=== PATIENT | female | born 1990 | race Two or more races ===

== ENCOUNTER 2017-01-31 15:18 | Emergency (ER) | payer OTHER ==
[~2017-01-31] VITALS: Ht 157.5 cm; Wt 100.0 kg
[~2017-01-31 15:18] MED LIST: ACET50TA PO; ANUS2.5C2 PR; DOCU10ELUD PO; IBUP80TA PO; LANOOIN21 TOP; LEVO75TA3 PO; MOM30SS PO; NORA0.35 PO; PRENTAB66 PO; PRENTAB9 PO
[2017-01-31] MEDS ORDERED: birth control PO (15:28)
[2017-01-31] MEDS ORDERED: ZOLO50TA PO (15:28)
[2017-01-31] MEDS ORDERED: HYDR-3363 PO (15:28)
[2017-01-31] MEDS ORDERED: NS 1,000 ML IV ONE (18:15)
[2017-01-31] MEDS: MORPHINE 2 MG/ML 1ML SYRINGE IV PRN ×3 (18:38→20:45)
[2017-01-31 18:40] LABS: BASO % 0.4 % (0.0-1.0); EOS # 0.2 10^3/uL (0.0-0.50); EOS % 1.6 % (0.0-3.0); IMMATURE GRANULOCYTE % 0.3 % (0-0); LYMPH # 2.7 10^3/uL (1.5-6.5); LYMPH % 26.7 % (24.0-44.0); MEAN CORPUSCULAR HEMOGLOBIN 29.8 pg (27.0-33.0); MEAN CORPUSCULAR HGB CONC 33.6 g/dl (32.0-36.5); MEAN CORPUSCULAR VOLUME 88.8 fl (80.0-96.0); MONO # 0.8 10^3/uL (0.0-0.8); MONO % 7.3 % (0.0-5.0); NEUTROPHILS # 6.6 10^3/uL (1.8-7.7); NEUTROPHILS % 63.7 % (36.0-66.0); PLATELET COUNT, AUTOMATED 286 10^3/uL (150-450); RED CELL DISTRIBUTION WIDTH 12.8 % (11.5-14.5); WHITE BLOOD COUNT 10.3 10^3/uL (4.0-10.0)
[2017-01-31] MEDS ORDERED: GASTROGRAFIN SOLUTION 30ML PO ONE (18:45)
[2017-01-31 19:04] LABS: ALBUMIN 3.7 GM/DL (3.2-5.2); ALBUMIN/GLOBULIN RATIO 0.97 (1.00-1.93); ALKALINE PHOSPHATASE 89 U/L (45-117); ALT/SGPT 72 U/L (12-78); ANION GAP 6 MEQ/L (8-16); AST/SGOT 32 U/L (15-37); BILIRUBIN,DIRECT 0.2 MG/DL (0.0-0.2); BILIRUBIN,TOTAL 0.5 MG/DL (0.2-1.0); BLOOD UREA NITROGEN 13 MG/DL (7-18); CALCIUM LEVEL 9.2 MG/DL (8.5-10.1); CARBON DIOXIDE LEVEL 28 MEQ/L (21-32); CHLORIDE LEVEL 103 MEQ/L (98-107); CREATININE FOR GFR 0.68 MG/DL (0.55-1.02); GLOMERULAR FILTRATION RATE > 60.0 (>60); GLUCOSE, FASTING 86 MG/DL (70-105); POTASSIUM SERUM 4.4 MEQ/L (3.5-5.1); SODIUM LEVEL 137 MEQ/L (136-145); TOTAL PROTEIN 7.5 GM/DL (6.4-8.2)
[2017-01-31] MEDS ORDERED: GASTROGRAFIN SOLUTION 30ML (Q9963) PO ONE (19:15)
[2017-01-31] MEDS ORDERED: ISOVUE-370 76% 100ML VIAL (Q9967) As Ordered ONE (21:10)
[2017-01-31 21:44] VITALS: BP 118/63
--- NOTE | 2017-01-31 21:50 | REPUSA ---
CT of the abdomen and pelvis with contrast Clinical statement: Pain. Technique: Multiple axial CT images were obtained from the base of the lungs through the floor of the pelvis utilizing 5 mm axial slices after administration of oral and nonionic intravenous contrast. C oronal and sagittal reconstructions were also obtained. Comparison: 01/21/2016. Findings: Chest: The visualized lung bases are clear. Abdomen: The liver, spleen, pancreas, kidneys, and adrenal glands are unremarkable. The aorta is with in normal limits. There is no evidence of abdominal lymphadenopathy or ascites. Pelvis: The bowel is unremarkable, with no obstructive or inflammatory changes. The appendix is flower l. The urinary bladder is within normal limits. The other pelvic structures appear grossly intact. Th ere is no evidence of pelvic lymphadenopathy or ascites. Bones: There are no suspicious osseous abnormalities seen. Impression: Unremarkable CT examination of the abdomen and pelvis.
[2017-01-31] MEDS ORDERED: PERC5TAB12 PO (22:06)
== END 2017-01-31 22:18 | disposition home or self-care (01) ==
LOC: M ED 15:18
DX: K62.89 Other specified diseases of anus and rectum (principal); E03.9 Hypothyroidism, unspecified; F41.9 Anxiety disorder, unspecified; F32.9 Major depressive disorder, single episode, unspecified; D69.3 Immune thrombocytopenic purpura; Z79.899 Other long term (current) drug therapy; Z79.3 Long term (current) use of hormonal contraceptives; Z88.8 Allergy status to other drugs, medicaments and biological substances
CPT/HCPCS: 74177; 80048; 80076; 81001; 81025; 83690; 85025; 96361; 96374; 99283; Q9963; Q9967

== ENCOUNTER 2017-02-01 14:32 | Emergency (ER) | payer OTHER ==
[~2017-02-01] VITALS: Ht 157.5 cm; Wt 104.8 kg
[~2017-02-01 14:32] MED LIST changes: +HYDR-3363 PO; +PERC5TAB12 PO; +ZOLO50TA PO; +birth control PO
[2017-02-01 16:31] LABS: BASO % 0.4 % (0.0-1.0); EOS # 0.1 10^3/uL (0.0-0.50); EOS % 1.5 % (0.0-3.0); IMMATURE GRANULOCYTE % 0.4 % (0-0); LYMPH # 2.3 10^3/uL (1.5-6.5); LYMPH % 28.2 % (24.0-44.0); MEAN CORPUSCULAR HEMOGLOBIN 29.4 pg (27.0-33.0); MEAN CORPUSCULAR HGB CONC 32.8 g/dl (32.0-36.5); MEAN CORPUSCULAR VOLUME 89.7 fl (80.0-96.0); MONO # 0.6 10^3/uL (0.0-0.8); NEUTROPHILS # 4.9 10^3/uL (1.8-7.7); NEUTROPHILS % 61.5 % (36.0-66.0); PLATELET COUNT, AUTOMATED 275 10^3/uL (150-450); RED CELL DISTRIBUTION WIDTH 12.9 % (11.5-14.5)
[2017-02-01 16:54] LABS: ANION GAP 5 MEQ/L (8-16); BLOOD UREA NITROGEN 18 MG/DL (7-18); CALCIUM LEVEL 9.1 MG/DL (8.5-10.1); CARBON DIOXIDE LEVEL 29 MEQ/L (21-32); CHLORIDE LEVEL 104 MEQ/L (98-107); CONTROL LINE HCG INT CTR LINE PRESENT; CREATININE FOR GFR 0.75 MG/DL (0.55-1.02); GLOMERULAR FILTRATION RATE > 60.0 (>60); GLUCOSE, FASTING 93 MG/DL (70-105); SODIUM LEVEL 138 MEQ/L (136-145)
--- NOTE | 2017-02-01 17:47 | REP ---
Supine abdomen two views: Comparison is 01/18/2016. There is opaque material throughout the colon, likely residual from the CT performed yesterday. The bowel gas pattern is normal. The bladder is opacified, likely from the CT performed yesterday. There are no calcifications. Skeletal structures and soft tissues are otherwise unremarkable. There are surgical clips in the abdominal right upper quadrant. Impression: Normal bowel gas pattern. Signed by Josiah Kumar MD 02/01/2017 05:38 P
[2017-02-01 19:40] VITALS: BP 112/65
== END 2017-02-01 19:33 | disposition home or self-care (01) ==
LOC: M ED 14:32
DX: R33.9 Retention of urine, unspecified (principal); F41.9 Anxiety disorder, unspecified; F32.9 Major depressive disorder, single episode, unspecified; E03.9 Hypothyroidism, unspecified; Z79.3 Long term (current) use of hormonal contraceptives; Z79.899 Other long term (current) drug therapy; Z88.8 Allergy status to other drugs, medicaments and biological substances

== ENCOUNTER 2017-02-05 18:23 | Emergency (ER) | payer OTHER ==
[~2017-02-05] VITALS: Ht 160 cm; Wt 327.0 kg
[2017-02-05] MEDS ORDERED: KETOROLAC 30 MG/ML VIAL (J1885) IV ONE (20:30)
[2017-02-05] MEDS ORDERED: NS 1,000 ML IV ONE (20:30)
[2017-02-05] MEDS: ONDANSETRON 4MG/2ML VIAL (J2405) IV PRN (21:02)
[2017-02-05 21:03] LABS: BASO # 0.1 10^3/uL (0.0-0.2); BASO % 0.3 % (0.0-1.0); EOS # 0.1 10^3/uL (0.0-0.50); EOS % 0.4 % (0.0-3.0); IMMATURE GRANULOCYTE % 0.3 % (0-0); LYMPH # 2.2 10^3/uL (1.5-6.5); LYMPH % 14.1 % (24.0-44.0); MEAN CORPUSCULAR HEMOGLOBIN 29.7 pg (27.0-33.0); MEAN CORPUSCULAR HGB CONC 33.4 g/dl (32.0-36.5); MEAN CORPUSCULAR VOLUME 88.9 fl (80.0-96.0); MONO # 0.7 10^3/uL (0.0-0.8); MONO % 4.6 % (0.0-5.0); NEUTROPHILS # 12.3 10^3/uL (1.8-7.7); NEUTROPHILS % 80.3 % (36.0-66.0); PLATELET COUNT, AUTOMATED 313 10^3/uL (150-450); RED CELL DISTRIBUTION WIDTH 12.9 % (11.5-14.5); WHITE BLOOD COUNT 15.4 10^3/uL (4.0-10.0)
[2017-02-05 21:04] LABS: METHADONE URINE NEGATIVE (NEGATIVE)
[2017-02-05 21:15] LABS: CONTROL LINE HCG INT CTR LINE PRESENT
[2017-02-05 21:25] LABS: ALBUMIN 4.2 GM/DL (3.2-5.2); ALBUMIN/GLOBULIN RATIO 1.02 (1.00-1.93); ALKALINE PHOSPHATASE 115 U/L (45-117); ALT/SGPT 97 U/L (12-78); ANION GAP 7 MEQ/L (8-16); AST/SGOT 43 U/L (15-37); BILIRUBIN,DIRECT 0.2 MG/DL (0.0-0.2); BILIRUBIN,TOTAL 0.5 MG/DL (0.2-1.0); BLOOD UREA NITROGEN 13 MG/DL (7-18); CALCIUM LEVEL 9.5 MG/DL (8.5-10.1); CARBON DIOXIDE LEVEL 27 MEQ/L (21-32); CHLORIDE LEVEL 102 MEQ/L (98-107); CREATININE FOR GFR 0.82 MG/DL (0.55-1.02); GLOMERULAR FILTRATION RATE > 60.0 (>60); GLUCOSE, FASTING 93 MG/DL (70-105); POTASSIUM SERUM 4.1 MEQ/L (3.5-5.1); SODIUM LEVEL 136 MEQ/L (136-145); TOTAL PROTEIN 8.3 GM/DL (6.4-8.2)
--- NOTE | 2017-02-05 21:50 | REPUSA ---
Clinical history: Pain. Findings: Real-time transabdominal and transvaginal ultrasound images of the pelvis were obtained. An anteverted uterus is noted, measuring 4.1 x 4.8 x 3.8 cm. The uterus demonstrates normal echotexture and echogenicity. The endometrial stripe measures 4 mm and is within normal limits. The right ovary measures 3.5 x 2.5 x 2.1 cm. The left ovary measures 3.3 x 1.9 x 2.0 cm. No adnexal masses are seen. Color Doppler flow is seen within both ovaries. There is no evidence of free fluid. Impression: Unremarkable ultrasound examination of the pelvis.
[2017-02-05] MEDS ORDERED: MORPHINE 4 MG/ML 1ML SYRINGE IV ONE (22:00)
[2017-02-05] MEDS ORDERED: ISOVUE-370 76% 100ML VIAL (Q9967) As Ordered ONE (22:05)
--- NOTE | 2017-02-05 22:50 | REPUSA ---
CT of the abdomen and pelvis with contrast Clinical statement: Pain. Technique: Multiple axial CT images were obtained from the base of the lungs through the floor of the pelvis utilizing 5 mm axial slices after administration of comparison: 01/31/2017 onic intravenous c ontrast. Coronal and sagittal reconstructions were also obtained. Comparison: 01/31/2017. Findings: Chest: The visualized lung bases are clear. Abdomen: The liver, spleen, pancreas, kidneys, and adrenal glands are unremarkable. The aorta is with in normal limits. There is no evidence of abdominal lymphadenopathy or ascites. Pelvis: The bowel is unremarkable, with no obstructive or inflammatory changes. The appendix is flower l. The urinary bladder is within normal limits. The other pelvic structures appear grossly intact. Th ere is no evidence of pelvic lymphadenopathy or ascites. Bones: There are no suspicious osseous abnormalities seen. Impression: Unremarkable CT examination of the abdomen and pelvis.
[2017-02-05 23:13] VITALS: BP 100/52
[2017-02-05] MEDS ORDERED: ZOFR4TAB3 PO (23:21)
== END 2017-02-05 23:39 | disposition home or self-care (01) ==
LOC: M ED 18:23
DX: R10.31 Right lower quadrant pain (principal); R10.32 Left lower quadrant pain; R11.0 Nausea; Z79.899 Other long term (current) drug therapy; Z79.3 Long term (current) use of hormonal contraceptives; Z88.8 Allergy status to other drugs, medicaments and biological substances
CPT/HCPCS: 36415; 74177; 76830; 76856; 80048; 80076; 80307; 81001; 84703; 85025; 87086; 93976; 96374; 96375; 99283; J1885; J2405; Q9967

== ENCOUNTER 2018-01-20 21:41 | Emergency (ER) | payer SELFPAY, OTHER ==
[2018-01-20] MEDS: KETOROLAC 60 MG/2 ML VIAL (J1885) IM (22:15)
[2018-01-20 22:25] LABS: BASO # 0.1 10^3/uL (0.0-0.2); BASO % 0.6 % (0.0-1.0); EOS # 0.1 10^3/uL (0.0-0.50); EOS % 1.1 % (0.0-3.0); HEMATOCRIT 41.6 % (36.0-47.0); HEMOGLOBIN 13.6 g/dl (12.0-15.5); IMMATURE GRANULOCYTE % 0.3 % (0-3.0); LYMPH # 2.9 10^3/uL (1.5-6.5); LYMPH % 27.5 % (24.0-44.0); MEAN CORPUSCULAR HEMOGLOBIN 29.5 pg (27.0-33.0); MEAN CORPUSCULAR HGB CONC 32.7 g/dl (32.0-36.5); MEAN CORPUSCULAR VOLUME 90.2 fl (80.0-96.0); MONO # 0.7 10^3/uL (0.0-0.8); MONO % 6.6 % (0.0-5.0); NEUTROPHILS # 6.8 10^3/uL (1.8-7.7); NEUTROPHILS % 63.9 % (36.0-66.0); PLATELET COUNT, AUTOMATED 317 10^3/uL (150-450); RED BLOOD COUNT 4.61 10^6/uL (4.00-5.40); RED CELL DISTRIBUTION WIDTH 12.9 % (11.5-14.5); WHITE BLOOD COUNT 10.6 10^3/uL (4.0-10.0)
[2018-01-20 22:47] LABS: CONTROL LINE HCG INT CTR LINE PRESENT; HCG, SERUM QUALITATIVE NEGATIVE (NEGATIVE)
== END 2018-01-21 00:28 | disposition home or self-care (01) ==
LOC: M ED 01-21 00:28
DX: N92.0 Excessive and frequent menstruation with regular cycle (principal); N93.8 Other specified abnormal uterine and vaginal bleeding; R10.2 Pelvic and perineal pain; Z79.899 Other long term (current) drug therapy; Z88.8 Allergy status to other drugs, medicaments and biological substances
CPT/HCPCS: J1885

== ENCOUNTER → 2018-03-28 | Outpatient (REF) | payer OTHER, MEDICAID | LOC: M LAB REF 17:26 | DX: Z12.4 Encounter for screening for malignant neoplasm of cervix (principal) | CPT/HCPCS: 88142 ==

== ENCOUNTER → 2018-08-24 | Outpatient (CLI) | payer MEDICAID ==
[~2018-08-24] MED LIST changes: -ACET50TA PO; -DOCU10ELUD PO; +DOCU5LIQ PO; +MAPA500T17 PO; +ZOFR4TAB14 PO
== END ==
LOC: M OUTALCOH 07:55
PROVIDERS: ATTEND Psychiatry & Neurology Psychiatry
DX: F10.20 Alcohol dependence, uncomplicated (principal)

== ENCOUNTER → 2018-09-07 | Outpatient (REF) | payer OTHER ==
[2018-09-07 11:26] LABS: BASO % 0.6 % (0.0-1.0); EOS # 0.1 10^3/uL (0.0-0.50); EOS % 1.7 % (0.0-3.0); HEMATOCRIT 41.9 % (36.0-47.0); HEMOGLOBIN 13.9 g/dl (12.0-15.5); LYMPH % 28.1 % (24.0-44.0); MEAN CORPUSCULAR HEMOGLOBIN 30.8 pg (27.0-33.0); MEAN CORPUSCULAR HGB CONC 33.2 g/dl (32.0-36.5); MEAN CORPUSCULAR VOLUME 92.9 fl (80.0-96.0); MONO # 0.5 10^3/uL (0.0-0.8); MONO % 6.6 % (0.0-5.0); NEUTROPHILS # 4.5 10^3/uL (1.8-7.7); NEUTROPHILS % 62.6 % (36.0-66.0); PLATELET COUNT, AUTOMATED 312 10^3/uL (150-450); RED BLOOD COUNT 4.51 10^6/uL (4.00-5.40); WHITE BLOOD COUNT 7.3 10^3/uL (4.0-10.0)
[2018-09-07 12:06] LABS: BLOOD UREA NITROGEN 17 MG/DL (7-18); CALCIUM LEVEL 8.9 MG/DL (8.5-10.1); CARBON DIOXIDE LEVEL 28 MEQ/L (21-32); CHLORIDE LEVEL 106 MEQ/L (98-107); GLOMERULAR FILTRATION RATE > 60.0 (>60); GLUCOSE, FASTING 106 MG/DL (70-100); POTASSIUM SERUM 4.5 MEQ/L (3.5-5.1); SODIUM LEVEL 139 MEQ/L (136-145)
== END ==
LOC: M SFHCLERA 09:46
PROVIDERS: ATTEND Nurse Practitioner Family
DX: Z00.00 Encounter for general adult medical examination without abnormal findings (principal); E03.9 Hypothyroidism, unspecified

== ENCOUNTER 2018-09-20 10:00 | Outpatient (RCR) | payer MEDICAID | END 2018-09-21 | LOC: M OUTALCOH 10:00 | PROVIDERS: ATTEND Psychiatry & Neurology Psychiatry | DX: F10.10 Alcohol abuse, uncomplicated (principal) ==

== ENCOUNTER 2018-10-18 09:00 | Outpatient (RCR) | payer MEDICAID | END 2018-10-21 | LOC: M OUTALCOH 09:00 | PROVIDERS: ATTEND Psychiatry & Neurology Psychiatry | DX: F10.20 Alcohol dependence, uncomplicated (principal) ==

== ENCOUNTER 2018-11-19 15:00 | Outpatient (RCR) | payer MEDICAID | END 2018-11-21 | LOC: M OUTALCOH 15:00 | PROVIDERS: ATTEND Psychiatry & Neurology Psychiatry | DX: F10.20 Alcohol dependence, uncomplicated (principal) ==

== ENCOUNTER 2018-12-07 11:00 | Outpatient (RCR) | payer MEDICAID | END 2018-12-22 | LOC: M OUTALCOH 11:00 | PROVIDERS: ATTEND Psychiatry & Neurology Psychiatry | DX: F10.20 Alcohol dependence, uncomplicated (principal) ==

== ENCOUNTER → 2018-12-07 | Outpatient (CLI) | payer MEDICAID | LOC: M LRY 12:34 | PROVIDERS: ATTEND Psychiatry & Neurology Psychiatry | DX: F10.20 Alcohol dependence, uncomplicated (principal) ==

== ENCOUNTER → 2019-01-07 | Outpatient (REF) | payer OTHER ==
[2019-01-07 20:31] LABS: FREE T4 1.74 NG/DL (0.76-1.46); THYROID STIMULATING HORMONE 0.012 uIU/ML (0.358-3.740)
== END ==
LOC: M SFHCLERA 15:28
PROVIDERS: ATTEND Nurse Practitioner Family
DX: E03.9 Hypothyroidism, unspecified (principal)

== ENCOUNTER 2019-01-09 08:00 | Outpatient (RCR) | payer MEDICAID | END 2019-01-21 | LOC: M OUTALCOH 08:00 | PROVIDERS: ATTEND Psychiatry & Neurology Psychiatry | DX: F10.20 Alcohol dependence, uncomplicated (principal) ==

== ENCOUNTER 2019-01-25 14:16 | Outpatient (RCR) | payer MEDICAID | END 2019-02-21 | LOC: M OUTALCOH 14:16 | PROVIDERS: ATTEND Psychiatry & Neurology Psychiatry | DX: F10.20 Alcohol dependence, uncomplicated (principal) ==

== ENCOUNTER → 2019-04-02 | Outpatient (REF) | payer OTHER ==
[2019-04-03 14:11] LABS: CHLAMYDIA DNA AMPLIFICATION NEGATIVE (NEGATIVE); GC DNA AMPLIFICATION NEGATIVE (NEGATIVE)
== END ==
LOC: M SFHCLERA 19:51
PROVIDERS: ATTEND Nurse Practitioner Family
DX: R35.0 Frequency of micturition (principal); N89.8 Other specified noninflammatory disorders of vagina

== ENCOUNTER → 2019-04-04 | Outpatient (REF) | payer OTHER ==
[2019-04-04 17:28] LABS: FREE T4 1.01 NG/DL (0.76-1.46); THYROID STIMULATING HORMONE 3.95 uIU/ML (0.358-3.740)
== END ==
LOC: M SFHCLERA 12:21
PROVIDERS: ATTEND Nurse Practitioner Family
DX: E03.9 Hypothyroidism, unspecified (principal)

== ENCOUNTER → 2019-05-03 | Outpatient (REF) | payer OTHER ==
[2019-05-03 21:37] LABS: CHLAMYDIA DNA AMPLIFICATION NEGATIVE (NEGATIVE); GC DNA AMPLIFICATION NEGATIVE (NEGATIVE)
== END ==
LOC: M SFHCLERA 15:08
PROVIDERS: ATTEND Nurse Practitioner Family
DX: R10.2 Pelvic and perineal pain (principal)

== ENCOUNTER → 2019-11-07 | Outpatient (CLI) | payer OTHER ==
--- NOTE | 2019-11-07 11:44 | REP ---
REASON: Elevated LFTs. COMPARISON: 10/15/2018, which is was normal for a status post cholecystectomy patient. Today's exam shows some evidence of mild diffuse increased echoes throughout the liver on the images provided. There are no gross masses or ductal dilatation. The common bile duct measures between 3 and 4 mm. The imaged portion of the pancreas and right kidney are within normal limits. IMPRESSION: Possible fatty infiltration suggested in the images provided. If liver function is of clinical concern, consider followup with sulfur colloid liver scintigraphy. Electronically Signed by Adonis Pérez DO 11/07/2019 12:29 P
== END ==
LOC: M LRY 08:37
PROVIDERS: ATTEND Family Medicine
DX: R74.8 Abnormal levels of other serum enzymes (principal)

== ENCOUNTER 2020-03-27 23:45 | Emergency (ER) | payer OTHER ==
[~2020-03-27] VITALS: Ht 157.5 cm; Wt 114.8 kg
[2020-03-27] MEDS ORDERED: METF-838 PO (23:58)
[2020-03-27] MEDS ORDERED: CITA40TA4 (23:58)
[2020-03-28 01:12] LABS: BASO # 0.1 10^3/uL (0.0-0.2); BASO % 0.5 % (0.0-1.0); EOS # 0.3 10^3/uL (0.0-0.5); EOS % 2.2 % (0.0-3.0); HEMATOCRIT 42.1 % (36.0-47.0); HEMOGLOBIN 13.3 g/dl (12.0-15.5); LYMPH # 3.7 10^3/uL (1.5-5.0); LYMPH % 32.2 % (24.0-44.0); MEAN CORPUSCULAR HEMOGLOBIN 28.8 pg (27.0-33.0); MEAN CORPUSCULAR HGB CONC 31.6 g/dl (32.0-36.5); MEAN CORPUSCULAR VOLUME 91.1 fl (80.0-96.0); MONO # 0.7 10^3/uL (0.0-0.8); NEUTROPHILS # 6.7 10^3/uL (1.5-8.5); NEUTROPHILS % 58.8 % (36.0-66.0); PLATELET COUNT, AUTOMATED 302 10^3/uL (150-450); RED BLOOD COUNT 4.62 10^6/uL (4.00-5.40); WHITE BLOOD COUNT 11.4 10^3/uL (4.0-10.0)
[2020-03-28] MEDS ORDERED: KETOROLAC 30 MG/ML 1ML VIAL IV ONE (01:30)
[2020-03-28 01:39] LABS: BLOOD UREA NITROGEN 17 MG/DL (7-18); CARBON DIOXIDE LEVEL 27 MEQ/L (21-32); CHLORIDE LEVEL 106 MEQ/L (98-107); CREATININE FOR GFR 0.89 MG/DL (0.55-1.30); GLOMERULAR FILTRATION RATE > 60.0 (>60); GLUCOSE, FASTING 89 MG/DL (70-100); POTASSIUM SERUM 3.8 MEQ/L (3.5-5.1); SODIUM LEVEL 140 MEQ/L (136-145)
[2020-03-28 01:40] LABS: ALBUMIN 3.8 GM/DL (3.2-5.2); ALT/SGPT 77 U/L (12-78); BILIRUBIN,DIRECT < 0.1 MG/DL (0.0-0.2); BILIRUBIN,TOTAL 0.2 MG/DL (0.2-1.0); LIPASE 166 U/L (73-393); TOTAL PROTEIN 7.4 GM/DL (6.4-8.2)
[2020-03-28 01:44] LABS: HCG, SERUM QUALITATIVE NEGATIVE (NEGATIVE)
--- NOTE | 2020-03-28 02:49 | REPVR ---
PROCEDURE INFORMATION: Exam: US Pelvis Complete, Transabdominal and US Duplex Artery and Vein, Ovaries, Complete Exam date and time: 03/28/2020 2:06 AM Age: 30 years old Clinical indication: Pelvic pain; Additional info: Rlq pain near ovary, radiates to vaginal area. Last menstrual period: 03/12/2020. TECHNIQUE: Imaging protocol: Real-time transabdominal pelvic ultrasound with image documentation. Real-time duplex ultrasound scan of the arterial and venous flow of the ovaries with B-mode, color Doppler flow and spectral waveform analysis. Complete Pelvis, Complete Duplex. COMPARISON: US PELVIC NON-OB COMPLETE 01/20/2018 10:42 PM FINDINGS: Uterus/cervix: The anteverted uterus is normal in appearance. No myometrial mass is noted. The endometrium is normal in appearance and measures 5 mm in thickness. Right adnexa: The right ovary is normal in appearance. No right ovarian cyst or right adnexal mass is noted. The right ovary measures 4.2 cm x 2.3 cm x 3.3 cm and the right ovarian volume measures 16.1 mL. The arterial and venous color Doppler flow and spectral waveforms within the right ovary are within normal limits, without evidence for right ovarian torsion. Left adnexa: The left ovary is normal in appearance. No left ovarian cyst or left adnexal mass is noted. The arterial and venous color Doppler flow and spectral waveforms within the left ovary are within normal limits, without evidence for left ovarian torsion. The left ovary measures 2.9 cm x 2.6 cm x 2.5 cm and the left ovarian volume measures 9.5 mL. Free fluid: No free fluid is seen from the images obtained. Bladder: The distended urinary bladder is normal in appearance. IMPRESSION: Normal ultrasound of the uterus and ovaries. No ovarian torsion. Electronically signed by: Brice Garcia On 03/28/2020 02:49:57 AM
[2020-03-28] MEDS ORDERED: ISOVUE-370 76% 100ML VIAL As Ordered ONE (03:52)
--- NOTE | 2020-03-28 04:29 | REPVR ---
PROCEDURE INFORMATION: Exam: CT Abdomen And Pelvis With Contrast Exam date and time: 03/28/2020 3:59 AM Age: 30 years old Clinical indication: Abdominal pain; Localized; Right lower quadrant (rlq); Additional info: Rlq abd pain TECHNIQUE: Imaging protocol: Computed tomography of the abdomen and pelvis with intravenous contrast. Radiation optimization: All CT scans at this facility use at least one of these dose optimization techniques: automated exposure control; mA and/or kV adjustment per patient size (includes targeted exams where dose is matched to clinical indication); or iterative reconstruction. Contrast material: ISOVUE 370; Contrast volume: 100 ml; Contrast route: INTRAVENOUS (IV); COMPARISON: CT ABD/PEL W/IV CONTRAST ONLY 02/05/2017 10:20 PM FINDINGS: Liver: Normal. No mass. Gallbladder and bile ducts: The patient is status post cholecystectomy. There is no biliary ductal dilatation. Pancreas: Normal. No ductal dilation. Spleen: Normal. No splenomegaly. Adrenal glands: Normal. No mass. Kidneys and ureters: Normal. No hydronephrosis. Stomach and bowel: Unremarkable. No obstruction. No mucosal thickening. Appendix: No evidence of appendicitis. Intraperitoneal space: There is subtle mesenteric haziness. Vasculature: Unremarkable. No abdominal aortic aneurysm. Lymph nodes: There is shotty small bowel mesenteric lymph nodes. Urinary bladder: Unremarkable as visualized. Reproductive: Unremarkable as visualized. Bones/joints: Unremarkable. No acute fracture. Soft tissues: Unremarkable. IMPRESSION: 1. Nonspecific mesenteric changes with some shotty lymph nodes which can be seen with inflammatory/infectious process such as enteritis. Correlate clinically. 2. No CT evidence of appendicitis. Electronically signed by: Jacinto Urena On 03/28/2020 04:29:49 AM
[2020-03-28] MEDS ORDERED: ONDA4TAB6 PO (05:30)
[2020-03-28 05:49] VITALS: BP 113/79
== END 2020-03-28 05:51 | disposition home or self-care (01) ==
LOC: M ED 23:45
DX: K52.9 Noninfective gastroenteritis and colitis, unspecified (principal); Z79.84 Long term (current) use of oral hypoglycemic drugs; Z79.899 Other long term (current) drug therapy; Z88.8 Allergy status to other drugs, medicaments and biological substances
CPT/HCPCS: 74177; 76856; 80048; 80076; 81001; 83690; 84703; 85025; 93041; 93976; 96374; 99284; J1885; Q9967

== ENCOUNTER 2020-06-03 20:59 | Emergency (ER) | payer OTHER ==
[~2020-06-03] VITALS: Ht 157.5 cm; Wt 113.7 kg
[~2020-06-03 20:59] MED LIST changes: +CITA40TA4; +METF-838 PO; +ONDA4TAB6 PO
--- OUTSIDE RECORDS SUMMARY | 2020-06-03 21:11 | CCD ---
Author Author [facility] Organization [facility] Address Unknown Phone Unavailable Care Team Providers Care Cant Gang Sawyer Name Role Phone Luzma Iraheta Unavailable PROBLEMS Type Condition ICD9-CM Code [id number] Code Onset Dates Condition S tatus SNOMED Code Notes Problem Vaginal bleeding N93.9 Active 327212319 Problem Hx MRSA infection Z86.14 Active 225081776 Problem Acquired hypothyroidism E03.9 Active 14335918 2 Problem Fatty liver K76.0 Active 245601242 Problem Irregular menses N92.6 Active 30231829 Problem Seasonal allergies J30.2 Active 204114058 Problem Dysthymia F34.1 Active 71180331 Problem Missed menses N92.6 Active 56481052 Problem History of ITP Z86.2 Active 354518282 ALLERGIES Allergen (clinical drug ingredient) Drug/Non Drug Allergy do cumented on EMR Reaction Allergy Type Onset Date Status albuterol Albuterol unsure; childhood reaction Drug Allergy Active ENCOUNTERS from 1990 to 2020-04-01 Encounter Location Date Provider Diagnosis [facility] [address] [place] [address] Mar, Luzma Iraheta Viral enteritis A08.4 IMMUNIZATIONS No Information SOCIAL HISTORY Tobacco Use: Social History Observation Description Date Details (start date - stop date) Never Smoker Sex Assigned At : Social History Observation Description Sex Assigned At Unknown Education: Question Answer Notes Level of Education: High School Audit Question Answer Notes Total Score: 0 Interpretation: Alcohol Education Language: Question Answer Notes Languages spoken: Sinhala Sabianism: Question Answer Notes Sabianism 33 None Sexual Hx: Question Answer Notes Had sex in the last 12 months (vaginal, oral, or anal)? Yes LMP: 09/01/2018 Have you ever had an STD? No with Men only Use protection? Yes How often? Some of the time Drug and Alcohol Question Answer Notes Total Score: 0 Interpretation: No problems reported Alcohol Screening: Question Answer Notes Did you have a drink containing alcohol in the past year? Ye s Points 1 Interpretation Negative How many drinks did you have on a typica l day when you were drinking in the past year? 1 or 2 (0 points) How often did you have a drink containing alcohol in t he past year? Monthly or less (1 point) BMI Care Goal Follow-Up Question Answer Notes Above Normal BMI Follow-Up Dietary management educatio n, guidance, and counseling Tobacco Use: Question Answer Notes Are you a: never smoker REASON FOR REFERRAL No Information VITAL SIGNS Weight 251.4 lbs Mar, Height 62 in Mar, BMI 45.98 kg/m2 Mar, Heart Rate 98 /min Mar, Respiratory Rate 17 /min Mar, Temperature 97.3 degrees Fahrenheit Mar, Oximetry 98 Mar, Blood pressure systolic 134 mm Hg Mar, Blood pressure diastolic 80 mm Hg Mar, MEDICATIONS Medication SIG (Take, Route, Frequency, Duration) Notes Start Da te End Date Status Citalopram Hydrobromide 40 MG 1 tablet Orally Once a day for 90 days Dec, Active Citalopram Hydrobromide 40 MG 1 tablet Orally Once a day for 30 day(s) Dec, Not-Taking Metformin HCl 500 MG 1 tablet with a meal Orally bid for 30 day( s) Jan, Active Diflucan 150 MG 1 tablet Orally Daily for 1 days 12 Mar, 2 019 Not-Taking Levothyroxine Sodium 75 MCG 1 tablet on an empty stoma ch in the morning Orally Once a day Dec, Active PROCEDURES No Information RESULTS No Results REASON FOR VISIT [facility] 03/27/2020 MEDICAL (GENERAL) HISTORY Type Description Date Medical History Hypothyroid Medical History Dysthymia Medical History alcohol use Medical History History of ITP Surgical History T & A 6 years old Surgical History Gallbladder 06/2011 Goals Section No Information Health Concerns No Information MEDICAL EQUIPMENT No Information MENTAL STATUS No Information FUNCTIONAL STATUS No Information ASSESSMENTS Encounter Date Diagnosis Assessment Notes Treatment Notes Treatm ent Clinical Notes Mar, Viral enteritis (ICD-10 - A08.4) Appears to be resolving, continue bland diet. Referral to GI for further evaluation. PLAN OF TREATMENT Treatment Notes Assessment Notes Clinical Notes Viral enteritis Appears to be resolv ing, continue bland diet. Referral to GI for further evaluation. Next Appt Details prn Reason: Insurance Providers Payer Name Payer Address Payer Phone Insured Name Patient Relati onship to Insured Coverage Start Date Coverage End Date [facility] [address] [facility] [phone] BEN BUCHANAN self
--- OUTSIDE RECORDS SUMMARY | 2020-06-03 21:11 | CCD ---
Author Author [facility] Organization [facility] Address Unknown Phone Unavailable Care Team Providers Care Toilet Attendant Name Role Phone Luzma Iraheta Unavailable PROBLEMS Type Condition ICD9-CM Code [id number] Code Onset Dates Condition S tatus SNOMED Code Notes Problem Vaginal bleeding N93.9 Active 970410618 Problem Hx MRSA infection Z86.14 Active 616914556 Problem Acquired hypothyroidism E03.9 Active 46044754 2 Problem Fatty liver K76.0 Active 718285464 Problem Irregular menses N92.6 Active 51123251 Problem Seasonal allergies J30.2 Active 679452181 Problem Dysthymia F34.1 Active 10789289 Problem Missed menses N92.6 Active 45236945 Problem History of ITP Z86.2 Active 989090276 ALLERGIES Allergen (clinical drug ingredient) Drug/Non Drug Allergy do cumented on EMR Reaction Allergy Type Onset Date Status albuterol Albuterol unsure; childhood reaction Drug Allergy Active ENCOUNTERS from 1990 to 2020-03-31 Encounter Location Date Provider Diagnosis [address] [address] Mar, Luzma Iraheta IMMUNIZATIONS No Information SOCIAL HISTORY Tobacco Use: Social History Observation Description Date Details (start date - stop date) Never Smoker Sex Assigned At : Social History Observation Description Sex Assigned At Unknown Education: Question Answer Notes Level of Education: High School Audit Question Answer Notes Total Score: 0 Interpretation: Alcohol Education Language: Question Answer Notes Languages spoken: Sinhala Mu-Ism: Question Answer Notes Mu-Ism 33 None Sexual Hx: Question Answer Notes [...] REASON FOR REFERRAL No Information VITAL SIGNS No information MEDICATIONS Medication SIG (Take, Route, Frequency, Duration) [...] 1 tablet Orally Daily for 1 days Mar, 019 Not-Taking Levothyroxine Sodium 75 MCG 1 tablet on an empty stoma ch in the morning Orally Once a day Dec, Active PROCEDURES No Information RESULTS No Results REASON FOR VISIT ER Visit [facility] 03/28; abd pain MEDICAL (GENERAL) HISTORY Type Description Date Medical History Hypothyroid Medical History Dysthymia Medical History alcohol use Medical History History of ITP Surgical History T & A 6 years old Surgical History Gallbladder 06/2011 Goals Section No Information Health Concerns No Information MEDICAL EQUIPMENT No Information MENTAL STATUS No Information FUNCTIONAL STATUS No Information ASSESSMENTS No Information PLAN OF TREATMENT No Information Insurance Providers Payer Name Payer Address Payer Phone Insured Name Patient Relati onship to Insured Coverage Start Date Coverage End Date [facility] [address] [facility] [phone] BEN BUCHANAN self
--- OUTSIDE RECORDS SUMMARY | 2020-06-03 21:11 | CCD ---
Author Author [facility] Organization [facility] Address Unknown Phone Unavailable Care Team Providers Care Fermentologist Name Role Phone Luzma Iraheta Unavailable PROBLEMS Type Condition ICD9-CM Code [id number] Code Onset Dates Condition S tatus SNOMED Code Notes Problem Vaginal bleeding N93.9 Active 477945526 Problem Hx MRSA infection Z86.14 Active 331729156 Problem Acquired hypothyroidism E03.9 Active 55925247 2 Problem Fatty liver K76.0 Active 143350293 Problem Irregular menses N92.6 Active 05657206 Problem Seasonal allergies J30.2 Active 289594402 Problem Dysthymia F34.1 Active 87283464 Problem Missed menses N92.6 Active 23060964 Problem History of ITP Z86.2 Active 466995314 ALLERGIES Allergen (clinical drug ingredient) Drug/Non Drug Allergy do cumented on EMR Reaction Allergy Type Onset Date Status albuterol Albuterol unsure; childhood reaction Drug Allergy Active ENCOUNTERS from 1990 to 2020-05-23 Encounter Location Date Provider Diagnosis [facility] [address] [place] [address] Apr, Luzma Iraheta IMMUNIZATIONS No Information SOCIAL HISTORY Tobacco Use: Social History Observation Description Date Details (start date - stop date) Never Smoker Sex Assigned At : Social History Observation Description Sex Assigned At Unknown Education: Question Answer Notes Level of Education: High School Audit Question Answer Notes Total Score: 0 Interpretation: Alcohol Education Language: Question Answer Notes Languages spoken: Venezuelan Restoration: Question Answer Notes Restoration 33 None Sexual Hx: Question Answer Notes [...] Information RESULTS No Results REASON FOR VISIT Call Back MEDICAL (GENERAL) HISTORY Type Description Date Medical [...] Insured Coverage Start Date Coverage End Date [facility] [address] [facility] [phone] BEN BUCHANAN self
--- OUTSIDE RECORDS SUMMARY | 2020-06-03 21:12 | CCD ---
Author Author [facility] Organization [facility] Address Unknown Phone Unavailable Care Team Providers Care Robot Operator Name Role Phone Chilango BAUER MD Unavailable Unavailable Chilango BAUER MD Unavailable Unavailable Chilango BAUER MD Unavailable Unavailable Chilango BAUER MD Unavailable Unavailable Chilango BAUER MD Unavailable Unavailable Chilango BAUER MD Unavailable Unavailable Chilango BAUER MD Unavailable Unavailable Chilango BAUER MD Unavailable Unavailable Chilango BAUER MD Unavailable Unavailable NO, PCP Unavailable Unavailable Re-disclosure Warning The records that you are about to access may contain information from federally-assisted alcohol or drug abuse programs. If such information is present, then the following federally mandated warning applies: This information has been disclosed to you from records protected by federal confidentiality rules (42 CFR part 2). The federal rules prohibit you from making any further disclosure of this information unless further disclosure is expressly permitted by the written consent of the person to whom it pertains or as otherwise permitted by 42 CFR part 2. A general authorization for the release of medical or other information is NOT sufficient for this purpose. The Federal rules restrict any use of the information to criminally investigate or prosecute any alcohol or drug abuse patient.The records that you are about to access may contain highly sensitive health information, the redisclosure of which is protected by Article 27-F of the [facility] Public Health law. If you continue you may have access to information: Regarding HIV / AIDS; Provided by facilities licensed or operated by the [facility] Office of Mental Health; or Provided by the [facility] Office for People With Developmental Disabilities. If such information is present, then the following [facility] mandated warning applies: This information has been disclosed to you from confidential records which are protected by state law. State law prohibits you from making any further disclosure of this information without the specific written consent of the person to whom it pertains, or as otherwise permitted by law. Any unauthorized further disclosure in violation of state law may result in a fine or fdc sentence or both. A general authorization for the release of medical or other information is NOT sufficient authorization for further disc losure. Allergies and Adverse Reactions Type Description Substance Reaction Status Data Source(s ) Drug allergy ALBUTEROL ALBUTEROL TOMI Smith [facility] Albuterol Albuterol Albuterol 1 MG/ML Inhalant Solut ion unsure; childhood reaction Active eCW1 ([facility]) Family History Family Member Name Family Member Gender Family Member Status Date o f Status Description Data Source(s) Unknown Unknown Problem MEDENT ([facility]) Unknown Unknown Problem MEDENT ([facility] maternal side of family, pgf Encounters Encounter Providers Location Date Indications Data Source(s ) [place] [address] [address] 05/22/2020 12:00:00 AM EST [facility] [place] [address] [address] 03/30/2020 12:00:00 AM EST [facility]CW1 [facility] [place] [address] [address] 03/30/2020 12:00:00 AM EST eCW1 [facility] [place] [address] [address] 02/11/2020 12:00:00 AM EDT eCW1 [facility] [place] [address] [address] 11/14/2019 12:00:00 AM EDT [facility]CW[facility] [place] [address] [address] 11/07/2019 12:00:00 AM EDT eCW1 [facility] [place] [address] [address] 10/29/2019 12:00:00 AM EDT eCW1 [facility] Emergency Attender: GORAN BAUER MDConsultant: PCP NO 10/13/2019 08:24:00 AM EDT - 10/13/2019 10:27:00 AM EDT [facility] Patient discharged. [facility] [place]is [address] [address] 05/03/2019 12:00:00 AM EST eCW1 [facility] [place]one [address] [address] 05/03/2019 12:00:00 AM EST eCW1 [facility] Leralonzo [address] [address] 04/26/2019 12:00:00 AM EST eCW1 [facility] [address] [address] 04/05/2019 12:00:00 AM EST eCW1 ([facility]) Medications Medication Brand Name Start Date Product Form Dose Route Admi nistrative Instructions Pharmacy Instructions Status Indications Reaction Description Data Source(s) Metformin hydrochloride 500 MG Oral Tablet Metformin H Cl 500 MG Metformin HCl 500 MG 02/11/2020 12:00:00 AM EDT 1.0 {tablet_with_a_meal} active Metformin HCl 500 MG eCW1 ([facility]) Metformin hydrochloride 500 MG Oral Tablet Metformin H Cl 500 MG Metformin HCl 500 MG 02/11/2020 12:00:00 AM EDT 1.0 {tablet_with_a_meal} active Metformin HCl 500 MG eCW1 ([facility]) Metformin hydrochloride 500 MG Oral Tablet Metformin H Cl 500 MG Metformin HCl 500 MG 02/11/2020 12:00:00 AM EDT 1.0 {tablet_with_a_meal} active Metformin HCl 500 MG eCW1 ([facility]) Metformin hydrochloride 500 MG Oral Tablet Metformin H Cl 500 MG Metformin HCl 500 MG 02/11/2020 12:00:00 AM EDT 1.0 {tablet_with_a_meal} active Metformin HCl 500 MG eCW1 ([facility]) Insurance Providers Payer name Policy type / Coverage type Policy ID Covered alliance party ID Covered alliance party's relationship to leroy Policy Leroy Plan Information [employer] [facility] [id number] SP [id number] [employer]AN [facility] [id number] SP [id number] [facility] O [id number] S [id number] [employer] COMMUNITY PLAN XIX [id number] 18 [id number] MEDICAID -O/P [id number] 18 [id number] [facility] [id number] 18 [id number] [facility] HUMANA - O/P [id number] 01 [id number] MATTHEW [id number] 18 [id number] 200 [facility] [id number] SP [id number] ANSI-Medicaid [id number] ANSI-Not a Secondary Insurance [id number] ANSI-Not a Secondary Insurance [id number] ANSI-Medicaid [id number] MEDICAID [id number] SP [id number] MATTHEW [id number] SP [id number] 200 [facility] Part B [id number] Self [id number] Medicaid [place] Part B [id number] Self [id number] [place] Care [place] [id number] Self [id number] [place] [id number] Self [id number] Matthew Care [place] Medicaid [id number] Self [id number] [place] Other 0 Self 0 MATTHE[place] XIX MAN -PHYSICIAN [id number] 18 [id number] SELF PAY ONLY [id number] SP [id number] HUMANA [id number] HU2 [id number] [facility] [id number] HU2 [id number] [facility] [id number] S [id number] N REGIONAL CLAIMS LUCÍA-O/P [id number] 01 [id number] [employer] [id number] Family Dependent [id number] Problems, Conditions, and Diagnoses Code Display Name Description Problem Type Effective Dates Data Source(s) N92.6 [id number] Irregular menses Problem 11/14/2019 12:00:00 AM EDT eCW1 ([facility]) K76.0 [id number] Fatty liver Problem 11/14/2019 12:00:00 AM E DT eCW1 ([facility]) 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 Problem 10/29/2019 12:00:00 AM EDT eCW1 ([facility]) Y[address] or not applicable Unspecified place or not applicable Diagnosis 10/13/2019 08:24:00 AM EDT [facility] [id number] Exposure to other specified factors, ini tial encounter Exposure to other specified factors, initial encounter Diagnosis 10/13/2019 08:24:00 AM EDT [facility] R945 Abnormal results of liver function studi es Abnormal results of liver function studies Diagnosis 10/13/2019 08:24:00 AM EDT [facility] N3001 Acute cystitis with hematuria Acute cystitis with maura turia Diagnosis 10/13/2019 08:24:00 AM EDT [facility] 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, thoracic region Other intervertebral disc degeneration, thoracic region Diagnosis 09/23 08:24:00 AM EDT [facility] [id number] Strain of muscle and tendon of back wall of thorax, initial encounter Strain of muscle and tendon of back wall of thorax, initial encounter Diagnosis 10/13/2019 08:24:00 AM EDT [facility] M546 Pain in thoracic spine Pain in thoracic spine Diagnosi s 10/13/2019 08:24:00 AM [facility] Surgeries/Procedures Procedure Description Date Indications Data Source(s) URINE TEST 04/26/2019 12:00:00 AM EST eCW1 ([facility]) Results ID Date Data Source [id number] 02/05/2020 11:03:49 AM EDT eCW1 ([facility]) Name Value Range Interpretation Code Description Data Anat rce(s) Supporting Document(s) Hemoglobin A1c/Hemoglobin.total in Blood 5.5 HEMOGLOBIN A1c eCW1 ([facility]) ID Date Data Source LDH LACTATE DEHYDROGENASE 11/07/2019 05:42:21 AM EDT eCW1 ([facility]) Name Value Range Interpretation Code Description Data Anat rce(s) Supporting Document(s) 185 LDH LACTATE DEHYDROGENASE eCW1 ([facility]) ID Date Data Source GAMMA GLUTAMYLTRANSPEPTIDASE 11/07/2019 05:42:21 AM EDT eCW1 ([facility]) Name Value Range Interpretation Code Description Data Anat rce(s) Supporting Document(s) 135 GAMMA GLUTAMYLTRANSPEPTIDASE e CW1 ([facility]) ID Date Data Source Comprehensive Metabolic Profile (CMP) 11/07/2019 05:42:21 AM EDT eCW1 ([facility]) Name Value Range Interpretation Code Description Data Anat rce(s) Supporting Document(s) 12 BLOOD UREA NITROGEN eCW1 ([facility]) 104 GLUCOSE, FASTING eCW1 ([facility]) 0.94 CREATININE FOR GFR eCW1 ([facility]) > 60.0 GLOMERULAR FILTRATION RATE eCW 1 ([facility]) 108 CHLORIDE LEVEL eCW1 ([facility]) 143 SODIUM LEVEL eCW1 ([facility]) 4.3 POTASSIUM SERUM eCW1 ([facility]) 29 CARBON DIOXIDE LEVEL eCW1 ([facility]) 8.6 CALCIUM LEVEL eCW1 ([facility]) 35 AST/SGOT eCW1 ([facility]) 83 ALT/SGPT eCW1 ([facility]) 3.6 ALBUMIN eCW1 ([facility]) 0.5 BILIRUBIN,TOTAL eCW1 ([facility]) 75 ALKALINE PHOSPHATASE eCW1 ([facility]) 7.3 TOTAL PROTEIN eCW1 ([facility]) 1.0 ALBUMIN/GLOBULIN RATIO eCW1 ([facility]) ID Date Data Source CBC with Differential 11/07/2019 05:42:21 AM EDT eCW1 ([facility]) Name Value Range Interpretation Code Description Data Anat rce(s) Supporting Document(s) 7.7 WHITE BLOOD COUNT eCW1 ([facility]) 92.2 MEAN CORPUSCULAR VOLUME eCW1 ( [facility]) 4.47 RED BLOOD COUNT eCW1 ([facility]) 41.2 HEMATOCRIT eCW1 ([facility]) 13.3 HEMOGLOBIN eCW1 ([facility]) 275 PLATELET COUNT, AUTOMATED eCW1 ([facility]) 29.8 MEAN CORPUSCULAR HEMOGLOBIN eC W1 ([facility]) 12.9 RED CELL DISTRIBUTION WIDTH eC W1 ([facility]) 32.3 MEAN CORPUSCULAR HGB CONC eCW1 ([facility]) 32.8 LYMPH % eCW1 ([facility]) 57.2 NEUTROPHILS % eCW1 ([facility]) 6.8 MONO % eCW1 ([facility]) 0.8 BASO % eCW1 ([facility]) 2.1 EOS % eCW1 ([facility]) 2.5 LYMPH # eCW1 ([facility]) 4.4 NEUTROPHILS # eCW1 ([facility]) 0.5 MONO # eCW1 ([facility]) 0.1 BASO # eCW1 ([facility]) 0.2 EOS # eCW1 ([facility]) ID Date Data Source PT-INR 11/07/2019 05:42:10 AM EDT eCW1 ([facility]) Name Value Range Interpretation Code Description Data Anat rce(s) Supporting Document(s) Prothrombin time (PT) 12.8 PROTHROMBIN TI ME eCW1 ([facility]) INR in Platelet poor plasma by Coagulation assay 0.99 INR eCW1 ([facility]) ID Date Data Source TSH 11/07/2019 05:41:06 AM EDT eCW1 ([facility]) Name Value Range Interpretation Code Description Data Anat rce(s) Supporting Document(s) 11.100 THYROID STIMULATING HORMONE eC W1 ([facility]) ID Date Data Source [id number] 10/13/2019 08:24:00 AM EDT [facility] 1 OrderSheet [facility] Emergency Department [address] [place] [address] Phone #: ext- [phone] 10/13/2019 08:09 Patient: BEN BUCHANAN Sex: F : 1990 Age: 29yWEIGHT:108.8 kg (S) HEIGHT:62 inches (S) BMI:43.9ALLERGIES: AlbuterolCHIEF COMPLAINT: back painDIAGNOSIS: Liver function tests abnormal, Urinary tract infectious disease, BackacheLAB ORDERSOrder Description Priority Entered Acknowledged InitialedCMP STAT 08:35 10/13/2019 Ack'd: 08:36 08:36 Goran Jung Jennifer Jennifer R.N. Physician; R.N.CBC w Diff STAT 08:35 10/13/2019 08:36 Goran Jung R.N. Physician;D-Dimer STAT 08:35 10/13/2019 08:36 Goran Jung R.N. Physician;Urinalysis (Clean STAT 08:35 10/13/2019 08:52 Fabiana,Catch) Goran Briones R.N. Physician;Lipase STAT 08:35 10/13/2019 08:36 Goran Jung R.N. Physician;HCG Serum Qual STAT 08:35 10/13/2019 08:36 Goran Jung R.N. Physician;DIAGNOSTIC STUDY ORDERSOrder Description Priority Entered Acknowledged InitialedChest 2 View STAT 08:35 10/13/2019 Ack'd: 08:36 09:41 Dorene(Oxygen?(No)) Anali Haile RN Physician; R.N. NOTES: Posterior L interscapular chest pain / L upper back pain Reason for Study: Chest PainMEDICATION/IV/DRIP/FLUID ORDERSOrder Description Priority Entered Acknowledged Initialed 2 OrderSheet [facility] Emergency Department [address] [place] [address] Phone #: ext- [phone] 10/13/2019 08:09 Patient: BEN BUCHANAN Sex: F : 1990 Age: 29yGENERAL ORDERSOrder Description Priority Entered Acknowledged InitialedEKG 08:35 10/13/2019 08:44 Goran Jung R.N. Physician;[Electronically signed by Anali Jung R.N. (10:29 10/13/2019)][Electronically signed by Goran Bauer Physician (23:37 10/13/2019)][Electronically locked by Anali Jung R.N. (:10/13/2019)] Name Value Range Interpretation Code Description Data Anat rce(s) Supporting Document(s) ID Date Data Source [id number] 10/13/2019 08:24:00 AM EDT [facility] 1 Medication Reconciliation Report [facility] Emergency Department [address] [place] [address] Phone #: ext- [phone] 10/13/2019 08:09 Patient: BEN BUCHANAN Sex: F : 1990 Age: 29yWeight: 108.8 kgHeight/Length: 62 in.BMI: 43.9ALLERGIES: AlbuterolThe patient's Home Medications are listed below:NONE.The source(s) of the original Home Medication information:patientThe following Medications were given to the patient in the Emergency Department:None.The following Medications were prescribed to the patient:Macrobid 100 mg capsule Take 1 capsule twice a day for 7 days -- for UTI. Dispense 14 capsule. Refills:0. Substitution permitted.Pharmacy - [facility] [address], [place] [phone]. .Macrobid 100 mg capsule Take 1 capsule twice a day for 7 days -- for UTI. Dispense 14 capsule. Refills:0. Substitution permitted.Pharmacy - [phone] ; [place] [address]. FaxNumber: . -- Goran Bauer, Physician Name Value Range Interpretation Code Description Data Anat rce(s) Supporting Document(s) ID Date Data Source [id number] 10/13/2019 08:24:00 AM EDT [place] [address] Medication Administration Record [facility] Emergency Department [address] [place] [address] Phone #: ext [phone] 10/13/2019 08:09 Patient: BEN BUCHANAN Sex: F : 1990 Age: 29yWeight: 108.8 kgHeight/Length: 62 inBMI: 43.9ALLERGIES: AlbuterolDate/Time Medication Administered Medication Ordered Name Value Range Interpretation Code Description Data Anat [facility](s) Supporting Document(s) ID Date Data Source [id number] 10/13/2019 08:24:00 AM EDT [facility] 1 General Instructions [facility] Emergency Department [address] [place] [address] Phone #: ext- [phone] 10/13/2019 08:09 Patient: BEN BUCHANAN Sex: F : 1990 Age: 29yAbnormal liver function test: AST/SGOT and ALT/SGPT.Acute thoracic back pain associated with muscle strain; 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 (Linterscapular pain). No radiculopathy or neurological deficit.Acute urinary tract infection with cystitis. No hematuria. Not associated with indwelling catheter orobstruction.INSTRUCTIONSLimit lifting.(Need to recheck LFTs in 1 week. Drink plenty of liquids. Motrin / Tylenol for pain.).Warnings: GENERAL WARNINGS: Return or contact your physician immediately if your conditionworsens or changes unexpectedly, if not improving as expected, or if other problems arise.Prescription Medications:Macrobid 100 mg capsule Take 1 capsule twice a day for 7 days -- for UTI. Dispense 14 capsule. Refills:0. Substitution permitted.Pharmacy - [facility] [address] ; [place], [place] [phone]. FaxNumber: .Macrobid 100 mg capsule Take 1 capsule twice a day for 7 days -- for UTI. Dispense 14 capsule. Refills:0. Substitution permitted.Pharmacy - [phone] ; [place] [address]. .Follow-up:Follow up with your doctor in two days if not better. Call for an appointment. Reason for referral: evaluation,treatment and L interscapular back pain / elevated LFTs / UTI.Understanding of the discharge instructions verbalized by patient. ADDITIONAL INFORMATIONBack Pain (Acute or Chronic) 2 General Instructions [facility] Emergency Department [address] [place] [address] Phone #: ext- [phone] 10/13/2019 08:09 Patient: BEN BUCHANAN Sex: F : 1990 Age: 29yBack pain is one of the most common problems. The good news is that most people feel better in 1 to2 weeks, and most of the rest in 1 to 2 months. Most people can remain active.People who have pain describe it differently--not everyone is the same. The pain can be sharp, stabbing, shooting, aching, cramping or burning. Movement, standing, bending, lifting, sitting, or walking may worsen pain. It can be localized to one spot or area, or it can be more generalized. It can spread or radiate upwards, to the front, or go down your arms or legs (sciatica). It can cause muscle spasm.Most of the time, mechanical problems with the muscles or spine cause the pain. Mechanicalproblems are usually caused by an injury to the muscles or ligaments. While illness can cause backpain, it is usually not caused by a serious illness. Mechanical problems include: 3 General Instructions [facility] Emergency Department [address] [place] [address] Phone #: [phone] 10/13/2019 08:09 Patient: BEN BUCHANAN Sex: F : 1990 Age: 29y Physical activity such as sports, exercise, work, or normal activity Overexertion, lifting, pushing, pulling incorrectly or too aggressively Sudden twisting, bending, or stretching from an accident, or accidental movement Poor posture Stretching or moving wrong, without noticing pain at the time Poor coordination, lack of regular exercise (check with your doctor about this) Spinal disc disease or arthritis StressPain can also be related to , or illness like appendicitis, bladder or kidney infections, pelvicinfections, and many other things.Acute back pain usually gets better in 1 to 2 weeks. Back pain related to disk disease, arthritis in thespinal joints or spinal stenosis (narrowing of the spinal canal) can become chronic and last for monthsor years.Unless you had a physical injury (for example, a car accident or fall) X-rays are usually not needed forthe initial evaluation of back pain. If pain continues and does not respond to medical treatment,X-rays and other tests may be needed.Home careTry these home care recommendations: When in bed, try to find a position of comfort. A firm mattress is best. Try lying flat on your back with pillows under your knees. You can also try lying on your side with your knees bent up towards your chest and a pillow between your knees. At first, do not try to stretch out the sore spots. If there is a strain, it is not like the good soreness you get after exercising without an injury. In this case, stretching may make it worse. Don't sit for long periods, as in a long car ride or during other travel. This puts more stress on the lower back than standing or walking. During the first 24 to 72 hours after an acute injury or flare up of chronic back pain, apply an ice pack to the painful area for 20 minutes and then remove it for 20 minutes. Do this over a period of 60 to 90 minutes or several times a day. This will reduce swelling and pain. Wrap the ice pack in a thin towel or plastic to protect your skin. You can start with ice, then switch to heat. Heat (hot shower, hot bath, or heating pad) reduces pain and works well for muscle spasms. Heat can be applied to the painful area for 20 4 General Instructions [facility] Emergency Department [address] [place] [address] Phone #: ext- [phone] 10/13/2019 08:09 Patient: BEN BUCHANAN Sex: F : 1990 Age: 29y minutes then remove it for 20 minutes. Do this over a period of 60 to 90 minutes or several times a day. Do not sleep on a heating pad. It can lead to skin romero or tissue damage. You can alternate ice and heat therapy. Talk with your doctor about the best treatment for your back pain. Therapeutic massage can help relax the back muscles without stretching them. Be aware of safe lifting methods and do not lift anything without stretching first.MedicinesTalk to your doctor before using medicine, especially if you have other medical problems or are takingother medicines. You may use comi-nxf-aevcroi medicine as directed on the bottle to control pain, unless another pain medicine was prescribed. If you have chronic conditions like diabetes, liver or kidney disease, stomach ulcers, or gastrointestinal bleeding, or are taking blood thinners, talk to your doctor before taking any medicine. Be careful if you are given a prescription medicines, narcotics, or medicine for muscle spasms. They can cause drowsiness, affect your coordination, reflexes, and judgement. Do not drive or operate heavy machinery.Follow-up careFollow up with your healthcare provider, or as advised.A radiologist will review any X-rays that were taken. Your provide will notify you of any new findingsthat may affect your care.Call [phone] if any of the following occur: Trouble breathing Confusion Very drowsy or trouble awakening Fainting or loss of consciousness Rapid or very slow heart rate Loss of bowel or bladder control 5 General Instructions [facility] Emergency Department [address] [place] [address] Phone #: ext- [phone] 10/13/2019 08:09 Patient: BEN BUCHANAN Sex: F : 1990 Age: 29yWhen to seek medical adviceCall your healthcare provider right away if any of these occur: Pain becomes worse or spreads to your legs Weakness or numbness in one or both legs Numbness in the groin or genital area [id number] [employer]. [address] [place] [address]. All rights reserved. This information is not intended as asubstitute for professional medical care. Always follow your healthcare professional's instructions.Bladder Infection, Female (Adult)Urine is normally doesn't have any bacteria in it. But bacteria can get into the urinary tract from theskin around the rectum. Or they can travel in the blood from elsewhere in the body. Once they are inyour urinary tract, they can cause infection in the urethra (urethritis), the bladder (cystitis), or thekidneys (pyelonephritis).The most common place for an infection is in the bladder. This is called a bladder infection. This isone of the most common infections in women. Most bladder infections are easily treated. They arenot serious unless the infection spreads to the kidney.The phrases "bladder infection," "UTI," and "cystitis" are often used to describe the same thing. Butthey are not always the same. Cystitis is an inflammation of the bladder. The most common cause ofcystitis is an infection. 6 General Instructions [facility] Emergency Department [address] [place] [address] Phone #: ext- [phone] 10/13/2019 08:09 Patient: BEN BUCHANAN Sex: F : 1990 Age: 29ySymptomsThe infection causes inflammation in the urethra and bladder. This causes many of the symptoms.The most common symptoms of a bladder infection are: Pain or burning when urinating Having to urinate more often than usual Urgent need to urinate Only a small amount of urine comes out Blood in urine Abdominal discomfort. This is usually in the lower abdomen above the pubic bone. Cloudy urine Strong- or bad-smelling urine Unable to urinate (urinary retention) Unable to hold urine in (urinary incontinence) Fever Loss of appetite Confusion (in older adults)CausesBladder infections are not contagious. You can't get one from someone else, from a toilet seat, orfrom sharing a bath.The most common cause of bladder infections is bacteria from the bowels. The bacteria get onto theskin around the opening of the urethra. From there, they can get into the urine and travel up to thebladder, causing inflammation and infection. This usually happens because of: Wiping improperly after urinating. Always wipe from front to back. Bowel incontinence Procedures such as having a catheter inserted Older age 7 General Instructions [facility] Emergency Department [address] [place] [address] Phone #: ext- [phone] 10/13/2019 08:09 Patient: BEN BUCHANAN Sex: F : 1990 Age: 29y Not emptying your bladder. This can allow bacteria a chance to grow in your urine. Dehydration Constipation Sex Use of a diaphragm for controlTreatmentBladder infections are diagnosed by a urine test. They are treated with antibiotics and usually clear upquickly without complications. Treatment helps prevent a more serious kidney infection.MedicinesMedicines can help in the treatment of a bladder infection: Take antibiotics until they are used up, even if you feel better. It is important to finish them to make sure the infection has cleared. You can use acetaminophen or ibuprofen for pain, fever, or discomfort, unless another medicine was prescribed. If you have chronic liver or kidney disease, talk with your healthcare provider before using these medicines. Also talk with your provider if you've ever had a stomach ulcer or gastrointestinal bleeding, or are taking blood-thinner medicines. If you are given phenazopydridine to reduce burning with urination, it will cause your urine to become a bright orange color. This can stain clothing.Care and preventionThese self-care steps can help prevent future infections: Drink plenty of fluids to prevent dehydration and flush out your bladder. Do this unless you must restrict fluids for other health reasons, or your doctor told you not to. Proper cleaning after going to the bathroom is important. Wipe from front to back after using the toilet to prevent the spre ad of bacteria. Urinate more often. Don't try to hold urine in for a long time. Wear loose-fitting clothes and cotton underwear. Avoid tight-fitting pants. Improve your diet and prevent constipation. Eat more fresh fruit and vegetables, and fiber, and less junk and fatty foods. Avoid sex until your symptoms are gone. 8 General Instructions [facility] Emergency Department [address] [place] [address] Phone #: ext- [phone] 10/13/2019 08:09 Patient: BEN BUCHANAN Sex: F : 1990 Age: 29y Avoid caffeine, alcohol, and spicy foods. These can irritate your bladder. Urinate right after intercourse to flush out your bladder. If you use control pills and have frequent bladder infections, discuss it with your doctor.Follow-up careCall your healthcare provider if all symptoms are not gone after 3 days of treatment. This is especiallyimportant if you have repeat infections.If a culture was done, you will be told if your treatment needs to be changed. If directed, you cancall to find out the results.If X-rays were done, you will be told if the results will affect your treatment.Call [phone] if any of the following occur: Trouble breathing Hard to wake up or confusion Fainting or loss of consciousness Rapid heart rateWhen to seek medical adviceCall your health care provider right away if any of these occur: Fever of 100.4F (38.0C) or higher, or as directed by your healthcare provider Symptoms are not better by the third day of treatment Back or belly (abdominal) pain that gets worse Repeated vomiting, or unable to keep medicine down Weakness or dizziness Vaginal discharge Pain, redness, or swelling in the outer vaginal area (labia) [id number] [employer]. [address] [place] [address]. All rights reserved. This information is not intended as asubstitute for professional medical care. Always follow your healthcare professional's instructions. 9 General Instructions [facility] Emergency Department [address] [place] [address] Phone #: ext- [phone] 10/13/2019 08:09 Patient: BEN BUCHANAN Sex: F : 1990 Age: 29yYou have been given the following additional informati on:Back Pain (Acute or Chronic)Bladder Infection, Female (Adult)Limit lifting.(Electronically signed by Goran Bauer, Physician 10/13/2019 23:37) Name Value Range Interpretation Code Description Data Anat rce(s) Supporting Document(s) ID Date Data Source [id number] 10/13/2019 08:24:00 AM EDT [facility] 1 Clinical Report - Nurses [facility] Emergency Department [address] [place] [address] Phone #: ext- [phone] 10/13/2019 08:09 Patient: BEN BUCHANAN Sex: F : 1990 Age: 29yTRIAGEArrived by private vehicle. Historian: patient. Accompanied by mother (in vehicle).Triage time: 08:12 10/13/2019. Acuity: LEVEL 4.Chief Complaint: BACK PAIN.Alert. No acute distress.This started yesterday. ( Pt states she woke up yesterday with upper back pain, no known injury. Pt statesthe pain radiates up toward her neck. Pt denies prior back injury). No history of recent trauma. 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 Sepsis Screen negative. No suspected or confirmed signs ofinfection present. (08:15 10/13/2019). --08:17 10/13/19 Anali Jung R.N.08:12 10/13/19. HR: 96. RR: 18. O2 saturation: 97% on room air. Temp: 98 F (oral). Pain level now 10.--08:17 10/13/19 Anali Jung R.N.08:36 10/13/19. BP: 130/81. --08:36 10/13/19 Anali Jung R.N.Weight: 108.8 kg stated. Height/Length: 62 inches Per Patient. BMI: 43.9. --08:12 10/13/19 Anali Jung R.N.MedicationsNone. --08:13 10/13/19 Anali Jung R.N.AllergiesAlbuterol. --08:13 10/13/19 Anali Jung R.N.PRO BLEMS:ITP.Hypothyroidism. --08:14 10/13/19 Anali Jung R.N.Medication/allergy information source: the patient. --08:17 10/13/19 Anali Jung R.N.ADDITIONAL SURGERIES:Adenoidectomy.Cholecystectomy.Tonsillectomy. --08:14 10/13/19 Anali Jung R.N. 2 Clinical Report - Nurses [facility] Emergency Department [address] [place] [address] Phone #: ext- [phone] 10/13/2019 08:09 Patient: BEN BUCHANAN Sex: F : 1990 Age: 29y History PAST MEDICAL HX: Tetanus status: up-to-date. Immunizations: up-to-date. Last normal menstrual period was 3 weeks ago. SOCIAL HX: Never smoker. Occasional alcohol use. No drug use. The patient was offered HIV testing but declined. Patient education was provided. The patient was offered hepatitis C testing but declined. Patient education was provided. ( COVID screen negative). The patient has not traveled outside the [place] Infectious disease exposure: No infectious disease exposure. Patient is a known carrier of MRSA. (Pt has had known MRSA in her armpit previously; No current symptoms). Patient is not a known carrier of tuberculosis, hepatitis, HIV, VRE or CRE. SELF HARM ASSESSMENT: Self harm assessment was performed. The patient answered "no" to the question(s) "Do you have thoughts of harming or killing yourself?" and "Do you have a plan for harming or killing yourself?". ABUSE ASSESSMENT: Abuse assessment. The patient had positive responses to the question(s) "Do you feel safe in your home?". Abuse denied. No suspicion of abuse. No report of abuse. NUTRITIONAL RISK ASSESSMENT: The nutritional risk assessment revealed no deficiencies. FUNCTIONAL ASSESSMENT: Functional assessment: no impairments noted. LEARNING NEEDS ASSESSMENT: The learning needs assessment revealed no barriers. FALL RISK ASSESSMENT: Fall risk assessment completed. No risk factors identified. SKIN INTEGRITY ASSESSMENT: Skin integrity risk assessment completed. No skin integrity risk identified. --08:17 10/13/19 Anali Jung R.N. Interventions Identification band on patient. --08:17 10/13/19 Anali Jung R.N.PHYSICAL ASSESSMENTAmbulatory to room.GENERAL / NEURO / PSYCH: Alert. Oriented X 4. Appears in no acute distress.RESPIRATORY: Respirations not labored.EXTREMITIES: Sensation intact in extremities. ROM of extremities within normal limits. ( Pt deniesincontinence).BACK: Normal inspection of the neck and back. Soft tissue tenderness in the left upper thoracicparaspinous region. --08:18 10/13/19 Anali Jung R.N.NURSING PROGRESS NOTESPatient gowned. Reassurance given. Three patient identifiers checked. Call light placed in reach. Side 3 Clinical Report - Nurses [facility] Emergency Department [address] [place] [address] Phone #: ext- [phone] 10/13/2019 08:09 [id number] Sex: F : 1990 Age: 29y rails up x 2. Bed placed in lowest position. Brakes of bed on. Patient ready for evaluation- ED physician notified. --08:18 10/13/19 Anali Jung R.N. EKG time: (late entry - 08:41 10/13/2019). EKG was ordered, performed by a nurse and shown to the ED physician. --08:43 10/13/19 Anali Jung R.N. Blood samples drawn. --08:43 10/13/19 Anali Jung R.N. Patient ID band checked for patient name and birthdate: patient confirmed. Instructions provided to collect clean catch urine and patient verbalized understanding. Clean catch urine collected; sample sent to lab for urinalysis. Specimen labeled in the presence of the patient. --08:52 10/13/19 Anali Jung R.N. late entry - 09:10 10/13/19. The patient reports no complaints and she is calm and resting quietly. Patient waiting for radiology study to be done. --09:40 10/13/19 Anali Jung R.N. late entry - 10:18 10/13/19. The patient reports no complaints and she is calm and resting quietly. --10:28 10/13/19 Anali Jung R.N.DISPOSITION / DISCHARGE 10:23 10/13/19. BP: 107/67. HR: 84. RR: 18. O2 saturation: 98%. Temp: 98.0 F. Pain level now 10. --10:24 10/13/19 [facility] Departure time: late entry - 10:27 10/13/2019. Condition at departure: stable. No learning barriers present. Discharge instructions provided and reviewed with the patient. Reviewed warnings (please see paper copy). Reviewed medication(s) side effects, precautions, dosing and course information. Prescription(s) sent electronically to pharmacy ([facility]). Activity restrictions reviewed. Patient verbalized understanding. Written instructions provided in Lithuanian. ( F/U with PCP for repeat LFT's). The patient was discharged by the physician. She was discharged home and accompanied by family. She left ambulatory and via private vehicle. Patient driving. --10:29 10/13/19 Anali Jung R.N.Locked/Released at 10/13/2019 10:29 by Anali Jung R.N. Name Value Range Interpretation Code Description Data Anat rce(s) Supporting Document(s) ID Date Data Source [id number] 10/13/2019 08:24:00 AM EDT [facility] 1 Clinical Report - Physicians/Mid Levels [facility] Emergency Department [address] [place] [address] Phone #: ext- [phone] 10/13/2019 08:09 Patient: BEN BUCHANAN Sex: F : 1990 Age: 29y Time Seen: 08:25 10/13/2019. Arrived- By private vehicle. Historian- patient. Disposition decision: 10:17 10/13/2019.HISTORY OF PRESENT ILLNESS Chief Complaint: BACK PAIN. It is described as being moderate in degree and in the area of the left side of the upper thoracic spine and left side of the mid- thoracic spine and left interscapular area. The quality is noted to be aching and "pain". No radiation. Onset was yesterday No cough, fever, vomiting, anterior chest pain, hx of smoking or traumatic injury. and it is still present. It was abrupt in onset. Modifying factors- worsened by rotation of the body to the right or left or taking deep breaths. No bladder dysfunction, bowel dysfunction, sensory loss or motor loss. Patient denies an injury. No injury to the head or other injury. Similar symptoms previously. (since yesterday). Recent medical care: Not recently seen/assessed.REVIEW OF SYSTEMSNo fever, chills, eye discomfort, headache or depression. No sore throat, cough, difficulty breathing, chestpain or skin rash. No abdominal pain, nausea, vomiting, diarrhea or black stools. No difficulty withurination, urinary frequency, hematuria, vaginal discharge or irregular periods. No bloody stools.PAST HISTORYPast history not negative. See nurses notes. Other disease. ITPHypothyroid. Surgeries: Adenoidectomy. Cholecystectomy. Tonsillectomy.SOCIAL HISTORYNever smoker. Occasional alcohol use. No drug use.ADDITIONAL NOTESThe nursing notes have been reviewed with agreement regarding the chief complaint, HPI, ROS, PMH andpatient medications and allergies.PHYSICAL EXAMVital Signs: 10/13/2019 08:36 BP: 130/81. MAP: 97.10/13/2019 08:12 HR: 96. RR: 18. O2 saturation: 97% on room air. Temp: 98 F. Have been reviewed andappear to be correct. Blood pressure normal. Heart rate normal. Respiratory rate normal.Temperature normal. Oxygen saturation normal.Appearance: Alert. Anxious. Appears to be in pain. Patient in mild distress. In distress.HEENT: Normal external inspection. 2 Clinical Report - Physicians/Mid Levels [facility] Emergency Department [address] [place] [address] Phone #: [phone]- [phone] 10/13/2019 08:09 Patient: BEN BUCHANAN Sex: F : 1990 Age: 29y Eyes: Pupils equal, round and reactive to light. ENT: Pharynx normal. Neck: Normal inspection. Neck nontender. Painless ROM. CVS: Normal heart rate and rhythm. Heart sounds normal. Pulses normal. Respiratory: No respiratory distress. Painless inspiration. Breath sounds normal. Chest nontender. Abdomen: Normal inspection. Soft and nontender. Bowel sounds normal. No organomegaly. No mass. Back: Normal inspection. Back tenderness present. Moderate soft tissue tenderness in the left upper and mid thoracic area. Moder ate muscle spasm present in the left upper and mid thoracic area. No painless ROM. No vertebral point tenderness, limitation in ROM or CVA tenderness. Skin: Skin warm and dry. Normal skin color. No rash. Normal skin turgor. Extremities: Extremities exhibit normal ROM. Extremities nontender. Neuro: Oriented X 3. Mood/affect normal. No motor deficit. No sensory deficit.LABS, X-RAYS, AND EKGEKG: Normal.Laboratory Tests: Laboratory tests have been ordered, with results reviewed and considered in themedical decision making process. CMP: (INGA: 10/13/2019 08:45) ( MsgRcvd 10/13/2019 09:37) Final results Test Result Flag Units (Reference) COMPREHENSIVE METABOLIC PANEL COMPREHENSIVE METABOLIC PANEL SODIUM 137 mEq/L (134 - 153) POTASSIUM 4.3 mEq/L (3.6 - 5.0) CHLORIDE 102 mEq/L (98 - 107) CO2 23 MEQ/L (22 - 30) GLUCOSE 110 MG/DL (65 - 110) BUN 16 MG/DL (7 - 21) CREATININE 0.8 MG/DL (0.7 - 1.5) BUN/CREAT 20 (8 - 27) TOTAL PROTEIN 8.0 G/DL (6.3 - 8.2) ALBUMIN 4.5 G/DL (3.9 - 5.0) GLOBULIN 3.5 H GM/DL (2.4 - 3.2) A/G RATIO 1.3 (0.8 - 2.0) CALCIUM 9.4 MG/DL (8.4 - 10.2) TOTAL BILI <0.7 MG/DL (0.2 - 1.3) ALKALINE PHOS 76 U/L (38 - 126) SGOT/AST 53 H U/L (5 - 40) SGPT/ALT 88 H U/L (7 - 56) ANION GAP 12.0 mmol/L (8.0 - 16.0) AGE 29 yrs NON-AA GFR >60 mL/min AFR AMER GFR >60 mL/min Male GFR Interprentation 20-49 yrs >60 mL/min Normal 50-59 yrs >56 mL/min Normal 60-69 yrs >49 mL/min Normal 70-79yrs >42 mL/min Normal 80 and above >35 mL/min Normal Female GFR Interpretation 20-39 yrs >60 mL/min Normal 40-49 yrs >58 mL/min Normal 50-59 yrs >51 mL/min Normal 60-69 yrs >45 mL/min Normal 70-79 yrs >39 mL/min Normal 80 and above >32 mL/min Normal CBC w Diff: (INGA: 10/13/2019 08:45) ( MsgRcvd 10/13/2019 09:10) Final results 3 Clinical Report - Physicians/Mid Levels [facility] Emergency Department [address] [place] [address] Phone #: ext- [phone] 10/13/2019 08:09 Patient: BEN BUCHANAN Sex: F : 1990 Age: 29y Test Result Flag Units (Reference) CBC W/AUTOMATED DIFF COMPLETE BLOOD COUNT WBC 11.4 H 10/uL (4.2 - 11.0) RBC 4.69 10/uL (4.20 - 5.40) HEMOGLOBIN 14.1 g/dL (12.0 - 16.0) HEMATOCRIT 42.2 % (37.0 - 47.0) MCV 90.0 fL (81.0 - 101) MCH 30.1 pg (27.0 - 34.0) MCHC 33.4 g/dL (31.0 - 36.0) RDW 13.2 % (11.5 - 14.5) PLATELETS 279 10/uL (150 - 450) MPV 10.7 H fL (7.4 - 10.4) NEUT 63.5 % (37.0 - 80.0) LYMPH 27.4 % (25.0 - 40.0) MONO 6.7 % (3.0 - 8.0) EOS 1.5 % (0.0 - 7.0) BASO 0.5 % (0.0 - 2.5) %IG 0.4 H % (0.0 - 0.0) %NRBC 0.0 % (0.0 - 0.0) #NEUT 7.26 H 10/uL (2.00 - 6.90) #LYMPH 3.13 10/uL (0.60 - 3.40) #MONO 0.77 10/uL (0.00 - 0.90) #EOS 0.17 10/uL (0.00 - 0.70) #BASO 0.06 10/uL (0.00 - 0.20) #IG 0.05 10/uL (0.00 - 0.10) #NRBC 0.00 10/uL (0.00 - 0.00) MANUAL DIFF NOT INDICATED RBC MORPH NOT INDICATEDD-Dimer: (INGA: 10/13/2019 08:45) ( [facility] 10/13/2019 09:11) Final results Test Result Flag Units (Reference) D-DIMER QUANT <0.27 ug/mL (0.27 - 0.50)Urinalysis: (INGA: 10/13/2019 08:53) ( [facility] 10/13/2019 09:18) Final results Test Result Flag Units (Reference) URINALYSIS URINALYSIS SOURCE Clean Catch COLOR yellow (NORMAL: Yello CLARITY cloudy (NORMAL: Clear SPEC GRAVITY 1.020 (1.001 - 1.030 pH 6 (5 - 9) GLUCOSE NORM (NORMAL: Negat BILIRUBIN NEG (NORMAL: Negat KETONE NEG (NORMAL: Negat PROTEIN NEG (NORMAL: Negat NITRITE NEG (NORMAL: Negat BLOOD NEG (NORMAL: Negat LEUK EST 500 A (NORMAL: Negat UROBILINOGEN NOR (less than 1.0 MICROSCOPIC See Below WBC 40 - 50 A (NO RMAL: NONE RBC 1 - 3 (NORMAL: NONE EPITHELIAL MANY A (NORMAL: NONE BACTERIA 1+ SMALL (NORMAL: NONE MUCOUS 2+ A (NORMAL: NONE 4 Clinical Report - Physicians/Mid Levels [facility] Emergency Department [address] [place] [address] Phone #: ext- [phone] 10/13/2019 08:09 Patient: BEN BUCHANAN Sex: F : 1990 Age: 29yLipase: (INGA: 10/13/2019 08:45) ( [facility] 10/13/2019 09:37) Final results Test Result Flag Units (Reference) LIPASE 41 U/L (13 - 60)Beta-HCG, Qual Serum: (INGA: 10/13/2019 08:45) ( [facility] 10/13/2019 09:21) Final results Test Result Flag Units (Reference) HCG SERUM QUAL NEGATIVE (NORMAL: NEGAT HCG SERUM QL REENTER NEGATIVE (NORMAL: NEGAT { KIT LOT # [id number] ){ KIT EXP DATE02/03/21 ){ PROCEDURAL CONTROL VALID)EKG: (INGA: 10/13/2019 08:35) ( [facility] 10/13/2019 12:30) In ProgressChest 2 View: (INGA: 10/13/2019 08:35) ( [facility] 10/13/2019 12:00) In ProgressCHEST 2 VIEWSReason(s): Chest PainTRANSPORTATION: WC IV? O2? Oxygen?(No) Room: ED: HCG Pending CMTS: Posterior L interscapular chest pain / L u Exam [place] [address] PHONE: [phone] FAX: [phone] Name .................. : DEWAYNE Arellano Acct Number.................. : [id number] ROOM. ................. : TR-1A MR Number ................... : [id number] Stay type ............. : E/R Discharge Date......... ... : 10/13/19 Admit Date ......... : 10/13/19 Admit Phys .................... : KAIDENS ADOLFO Date of ....... : 1990 Family Phys ................... : NO PCP Phone .................. : [phone] Age ................................ : 29 Film# .................. .:[id number] Sex ................................. : F Unsigned transcriptions are preliminary reports and do not represent a medical or legal document CHEST 2 VIEWS [id number] COMPLETE:10/13/19 10:17 SABINO [id number] Reason(s): Chest Pain CHEST X-RAY: 2-VIEWS INDICATION: Chest pain. FINDINGS: The car diac and mediastinal silhouettes appear normal and the lungs are clear. The bones and soft tissues are normal. The upper abdomen is unremarkable. IMPRESSION: No acute disease identifiable. Electronically Reviewed and Signed By DCTNAME , SIGNDATEBRAVO Clinical Report - Physicians/Mid Levels [facility] [place] [address] Phone #: ext- [phone] 10/13/2019 08:09 Patient: BEN BUCHANAN Sex: F : 1990 Age: 29y Transcribe Initials: CHRISSIE , Transcribe Date: 10/13/19 11:59, Dictation Date: <<REPDIST>> Page 1 of 1 . Note - Tests: (EKG - NSR).PROGRESS AND PROCEDURESCourse of Care: :Oct 13 2019. Patient is stable. :Oct 13 2019. Pt. has isolated elevated SGOT / SGPT and a UTI. Pt. has already had a cholecystectomy in past. EKG is unremarkable. CXR is unremarkable. Disposition: Discharged home in good and improved condition (:Oct 13 2019). Condition: good.CLINICAL IMPRESSION Abnormal liver function test: AST/SGOT and ALT/SGPT. 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 (L interscapular pain). No radiculopathy or neurological deficit. Acute urinary tract infection with cystitis. No hematuria. Not associated with indwelling catheter or obstruction.INSTRUCTIONS Limit lifting. (Need to recheck LFTs in 1 week. Drink plenty of liquids. Motrin / Tylenol for pain.). Warnings: GENERAL WARNINGS: Return or contact your physician immediately if your condition worsens or changes unexpectedly, if not improving as expected, or if other problems arise. Prescription Medications: Macrobid 100 mg capsule Take 1 capsule twice a day for 7 days -- for UTI. Dispense 14 capsule. Refills: 0. Substitution permitted. Pharmacy - [id number] [address], [place] [id number]. . 6 Clinical Report - Physicians/Mid Levels [facility] Emergency Department [address] [place] [address] Phone #: ext- [phone] 10/13/2019 08:09 Patient: BEN BUCHANAN Sex: F : 1990 Age: 29y Macrobid 100 mg capsule Take 1 capsule twice a day for 7 days -- for UTI. Dispense 14 capsule. Refills: 0. Substitution permitted. Pharmacy - [facility] [id number] ; [place] [address]. . Follow-up: Follow up with your doctor in two days if not better. Call for an appointment. Reason for referral: evaluation, treatment and L interscapular back pain / elevated LFTs / UTI. Understanding of the discharge instructions verbalized by patient.(Electronically signed by Goran Bauer, Physician 10/13/2019 23:37) Name Value Range Interpretation Code Description Data Anat rce(s) Supporting Document(s) ID Date Data Source [id number] 10/13/2019 08:24:00 AM EDT [facility] for [facility]EN BUCHANAN VisitID: [id number] Date: 9:26hepatitis panel negative(Electronically signed by Hope Rivera RN - 10/15/2019 9:26) Name Value Range Interpretation Code Description Data Anat rce(s) Supporting Document(s) ID Date Data Source [id number] 10/14/2019 02:15:00 PM EDT [facility] [address] [place] [address] PHONE: [phone] FAX: [phone] Name .................. : DEWAYNE Arellano Acct Number.................. : [id number] ROOM. ................. : TR-1A MR Number ................... : [id number] Stay type ............. : E/R Discharge Date......... ... : 10/13/19 Admit Date ....... .. : 10/13/19 Admit Phys .................... : KAIDENS ADOLFO Date of ....... : 1990 Family Phys ................... : NO PCP Phone .................. : [phone] Age ................................ : 29 Film# .................. .:[id number] Sex ................................. : F Unsigned transcriptions are preliminary reports and do not represent a medical or legal document CHEST 2 VIEWS [id number] COMPLETE:10/13/19 10:17 SABINO [id number] Reason(s): Chest Pain CHEST X-RAY: 2-VIEWS INDICATION: Chest pain. FINDINGS: The cardiac and mediastinal silhouettes appear normal and the lungs are clear. The bones and soft tissues are normal. The upper abdomen is unremarkable. IMPRESSION: No acute disease identifiable. Electronically Reviewed and Signed By Ralph Palomares MD , 10/14/19 14:15, BRAVO Transcribe I nitials: CHRISSIE , Transcribe Date: 10/13/19 11:59, Dictation Date: Copy for: EMERGENCY DEPT via modem Copy for: 710 MED REC DISCHARGED Page 1 of 1 Name Value Range Interpretation Code Description Data Anat rce(s) Supporting Document(s) ID Date Data Source [id number] 10/14/2019 09:34:00 AM EDT [facility] [address] [place] [address] RESPIRATORY CARE REPORT ==== ---------NAME------- NUMBER SEX AGE ADMIT DISC. XRAY# F/C ILDEFONSO CONTRERAS R [id number] F 29 10/13/19 10/13/19 [id number] P E/R DATE OF : 1990 M/R# [id number] #: [id number] TR-1A LOCATION: [place] [id number] COMPLE TE:10/13/19 12:30 CJM [id number] PHYSICIAN: LIZETTE MATA Name Value Range Interpretation Code Description Data Anat rce(s) Supporting Document(s) ID Date Data Source [id number] 10/17/2019 01:39:00 PM EDT [facility] Name Value Range Interpretation Code Description Data Anat rce(s) Supporting Document(s) CULTURE URINE [facility] spital CORRECTE D REPORT _CULTURE URINE_$$[id number]$$[id number]$$[id number]$$[id number]$$074414$$259659$$343787$$317186$$026288$$ 887893$$743294$$532633$$44230 5$$587607$$686366$$900749$$387379$$023021$$974735$$405418$$999338$$160062$$13362 7$$802911$$865192$$[id number]$$[id number] -- Continued on next page --Patient: DEWAYNE CONTRERAS R Order: [id number] Page 2Culture: CULTURE URINE Status: Final ==== -- Continued on next page --Patient: DEWAYNE CONTRERAS R Order: [id number] Page 2Culture: CULTURE URINE Status: Prel im =$$[id number]$$[id number] DATE/TIME: 10/17/2019 12:06Culture: CULTURE URINE Status: FinalUrine Culture,Comprehensive: [id number] urogenital flora25,000- 50,000 colony forming units per mL Previous result entered on 10/16/2019 04:53 ET Specimen has been received and testing has been initiated.P1 Test performed by: [facility] LEONARD #: [id number] [address] [place] [address] [id number] [facility] [id number] Director : Blu Love MD NPI #:Crm Specialist : 10/16/[email or web address] REF FOLLOWING RESULTS REPORTED IN ERROR REPORTED DATE/TIME: 10/16/2019 05:06 ID Date Data Source [id number] 10/13/2019 09:18:00 AM EDT [facility] Name Value Range Interpretation Code Description Data Anat rce(s) Supporting Document(s) [facility]ALYSIS [facility] URINALYSIS SOURCE Clean Catch [facility] COLOR yellow NORMAL: Yellow [facility] CLARITY cloudy NORMAL: Clear [facility] Specific gravity of Urine by Test strip 1.020 1.001 - 1.030 [facility] pH 6 5 - 9 [facility] Gl[facility] [Mass/volume] in Urine by Test strip NORM NORMAL: Negat [facility] Bilirubin.total [Presence] in Urine by Test strip NEG NORMAL: Negative [facility] Ketones [Presence] in Urine by Test strip NEG NORMAL: Negative [facility] Protein [Mass/volume] in Urine by Test strip NEG NORMAL: Negat [facility] Nitrite [Presence] in Urine by Test strip NEG NORMAL: Negative [facility] BLOOD NEG NORMAL: Negative [facility] Leukocyte esterase [Presence] in Urine by Test strip 500 LOGAN L: Negative A [facility] Urobilinogen [Mass/volume] in Urine by Test strip NOR less carlos n 1.0 mg/dL [facility] MICROSCOPIC See Below [facility] ital WBC 40 - 50 NORMAL: NONE SEEN A [facility] Erythrocytes [#/volume] in Urine by Test strip 1 - 3 NORMAL: NON E SEEN [facility] EPITHELIAL MANY NORMAL: NONE SEEN A [facility] Bacteria [Presence] in Urine sediment by Light microscopy 1+ SMALL NORMAL: NONE SEEN [facility] Mucus [Presence] in Urine sediment by Light microscopy 2+ NOR MAL: NONE SEEN A [facility] ID Date Data Source [id number] 10/15/2019 06:21:00 AM EDT [facility] Name Value Range Interpretation Code Description Data Anat rce(s) Supporting Document(s) Hepatitis A virus IgM Ab [Presence] in Serum or Plasma by Im munoassay Negative Negative [facility] Hepatitis B virus surface Ag [Presence] in Serum or Pl asma by Immunoassay Negative Negative [facility] Hepatitis B virus core IgM Ab [Presence] in Serum or P lasma by Immunoassay Negative Negative [facility] Hepatitis C virus Ab Signal/Cutoff in Serum or Plasma by Immunoassay <0.1 s/coratio 0.0-0.9 [facility] Negative: < 0.8 Indeterminate: 0.8 - 0.9 Positive: > 0.9 The CDC recommends that a positive HCV antibody result be followed up with a HCV Nucleic Acid Amplification test (674654). ID Date Data Source [id number] 10/13/2019 09:37:00 AM EDT [facility] Name Value Range Interpretation Code Description Data Anat rce(s) Supporting Document(s) Lipase [Enzymatic activity/volume] in Serum or Plasma 41 U/L 13 - 60 [facility] ID Date Data Source [id number] 10/13/2019 09:37:00 AM EDT [facility] Name Value Range Interpretation Code Description Data Anat rce(s) Supporting Document(s) COMPREHENSIVE METABOLIC PANEL [facility] COMPREHENSIVE METABOLIC PANEL Sodium [Moles/volume] in Serum or Plasma 137 mEq/L 134 - 153 [facility] Potassium [Moles/volume] in Serum or Plasma 4.3 mEq/L 3.6 - 5.0 [facility] Chloride [Moles/volume] in Serum or Plasma 102 mEq/L 98 - 107 [facility] Carbon dioxide, total [Moles/volume] in Serum or Plasma 23 MEQ/L 22 - 30 [facility] Glucose [Mass/volume] in Serum or Plasma 110 MG/DL 65 - 110 [facility] BUN 16 MG/DL 7 - 21 [facility] Creatinine [Mass/volume] in Serum or Plasma 0.8 MG/DL 0.7 - 1.5 [facility] BUN/CREAT 20 8 - 27 [facility] Protein [Mass/volume] in Serum or Plasma 8.0 G/DL 6.3 - 8.2 [facility] Albumin [Mass/volume] in Serum or Plasma 4.5 G/DL 3.9 - 5.0 [facility] Globulin [Mass/volume] in Serum by calculation 3.5 GM/DL 2.4 - 3.2 H [facility] A/G RATIO 1.3 0.8 - 2.0 [facility] Calcium [Mass/volume] in Serum or Plasma 9.4 MG/DL 8.4 - 10.2 [facility] Bilirubin.total [Mass/volume] in Serum or Plasma <0.7 MG/DL 0.2 - 1.3 [facility] Alkaline phosphatase [Enzymatic activity/volume] in Serum or Plasma 76 U/L 38 - 126 [facility] Aspartate aminotransferase [Enzymatic activity/volume] in Serum or Plasma 53 U/L 5 - 40 H [facility] Alanine aminotransferase [Enzymatic activity/volume] in Seru m or Plasma 88 U/L 7 - 56 H [facility] Anion gap 3 in Serum or Plasma 12.0 mmol/L 8.0 - 16.0 [facility] AGE 29 yrs [facility] NON-AA GFR >60 mL/min [facility] ital AFR AMER GFR >60 mL/min [facility] Male GFR In terprentation 20-49 yrs >60 mL/min Normal 50-59 yrs >56 mL/min Normal 60-69 yrs >49 mL/min Normal 70-79yrs >42 mL/min Normal 80 and above >35 mL/min Normal Female GFR Interpretation 20-39 yrs >60 mL/min Normal 40-49 yrs >58 mL/min Normal 50-59 yrs >51 mL/min Normal 60-69 yrs >45 mL/min Normal 70-79 yrs >39 mL/min Normal 80 and above >32 mL/min Normal ID Date Data Source [id number] 10/13/2019 09:20:00 AM EDT [facility] Name Value Range Interpretation Code Description Data Anat rce(s) Supporting Document(s) HCG SERUM QUAL NEGATIVE NORMAL: NEGATIVE [facility] HCG SERUM QL REENTER NEGATIVE NORMAL: NEGATIVE [facility] { KIT LOT # [id number] ){ KIT EXP DATE 02/03/21 ){ PROCEDURAL CONTROL VALID ) ID Date Data Source [id number] 10/13/2019 09:11:00 AM EDT [facility] Name Value Range Interpretation Code Description Data Anat rce(s) Supporting Document(s) Fibrin D-dimer FEU [Mass/volume] in Platelet poor plasma <0. 27 ug/mL 0.27 - 0.50 [facility] ID Date Data Source [id number] 10/13/2019 09:09:00 AM EDT [facility] Name Value Range Interpretation Code Description Data Anat rce(s) Supporting Document(s) CBC W/AUTOMATED DIFF [facility] COMPLETE BLOOD COUNT Leukocytes [#/volume] in Blood by Automated count 11.4 10^3/uL 4.2 - 11.0 H [facility] Erythrocytes [#/volume] in Blood by Automated count 4.69 10^6/uL 4. 20 - 5.40 [facility] Hemoglobin [Mass/volume] in Blood 14.1 g/dL 12.0 - 16.0 [facility] Hematocrit [Volume Fraction] of Blood by Automated count 42.2 % 3 7.0 - 47.0 [facility] Erythrocyte mean corpuscular volume [Entitic volume] by Auto mated count 90.0 fL 81.0 - 101 [facility] Erythrocyte mean corpuscular hemoglobin [Entitic mass] by Automated count 30.1 pg 27.0 - 34.0 [facility] Erythrocyte mean corpuscular hemoglobin concentration [Mass/volume] by Automated count 33.4 g/dL 31.0 - 36.0 [facility] Erythrocyte distribution width [Ratio] by Automated count 13.2 % 11.5 - 14.5 [facility] Platelets [#/volume] in Blood by Automated count 279 10^3/uL 150 - 45 0 [facility] Platelet mean volume [Entitic volume] in Blood by Automated count 10.7 fL 7.4 - 10.4 H [facility] Neutrophils/100 leukocytes in Blood by Automated count 63.5 % 37. 0 - 80.0 [facility] Lymphocytes/100 leukocytes in Blood by Manual count 27.4 % 25.0 - 40.0 [facility] Monocytes/100 leukocytes in Blood by Automated count 6.7 % 3.0 - 8.0 [facility] Eosinophils/100 leukocytes in Blood by Automated count 1.5 % 0.0 - 7.0 [facility] Basophils/100 leukocytes in Blood by Automated count 0.5 % 0.0 - 2.5 [facility] %IG 0.4 % 0.0 - 0.0 [facility] %NRBC 0.0 % 0.0 - 0.0 [facility] Neutrophils [#/volume] in Blood by Automated count 7.26 10^3/uL 2.00 - 6.90 H [facility] Lymphocytes [#/volume] in Blood by Automated count 3.13 10^3/uL 0.60 - 3.40 [facility] Monocytes [#/volume] in Blood by Automated count 0.77 10^3/uL 0.00 - 0.90 [facility] Eosinophils [#/volume] in Blood by Automated count 0.17 10^3/uL 0.00 - 0.70 [facility] Basophils [#/volume] in Blood by Automated count 0.06 10^3/uL 0.00 - 0.20 [facility] #IG 0.05 10^3/uL 0.00 - 0.10 [facility] #NRBC 0.00 10^3/uL 0.00 - 0.00 [facility] MANUAL DIFF NOT INDICATED [facility] RBC MORPH NOT INDICATED [facility] Procedure Social History Code Duration Value Status Description Data Source(s ) Smoking 03/30/2020 12:00:00 AM EST Never Smoker completed Never S moker eCW1 ([facility]) Smoking 03/30/2020 12:00:00 AM EST Never Smoker completed Never S moker eCW1 ([facility]) Smoking 03/30/2020 12:00:00 AM EST Never Smoker completed Never S moker eCW1 ([facility]) Smoking 02/11/2020 12:00:00 AM EDT Never Smoker completed Never S moker eCW1 ([facility]) Smoking 11/14/2019 12:00:00 AM EDT Never Smoker completed Never S moker eCW1 ([facility]) Smoking 10/29/2019 12:00:00 AM EDT Never Smoker completed Never S moker eCW1 ([facility]) Smoking 10/29/2019 12:00:00 AM EDT Never Smoker completed Never S moker eCW1 ([facility]) Vital Signs ID Date Data Source UNK Name Value Range Interpretation Code Description Data Source(s) Diastolic blood pressure 80 mm[Hg] 80 mm[Hg] eCW1 ([facility]) Systolic blood pressure 134 mm[Hg] 134 mm[Hg] e CW1 ([facility]) Body temperature 97.3 [degF] 97.3 [degF] eCW1 ( [facility]) Respiratory rate 17 /min 17 /min eCW1 ([facility]) Heart rate 98 /min 98 /min eCW1 ([facility]) Body mass index (BMI) [Ratio] 45.98 kg/m2 45.98 kg/m2 eCW1 ([facility]) Body height 62 [in_i] 62 [in_i] eCW1 ([facility]) Body weight 251.4 [lb_av] 251.4 [lb_av] eCW[facility] Diastolic blood pressure 72 mm[Hg] 72 mm[Hg] eCW1 ([facility]) Systolic blood pressure 113 mm[Hg] 113 mm[Hg] e CW1 ([facility]) Body temperature 97.6 [degF] 97.6 [degF] eCW1 ( [facility]) Respiratory rate 16 /min 16 /min eCW1 ([facility]) Heart rate 87 /min 87 /min eCW1 ([facility]) Body mass index (BMI) [Ratio] 46.45 kg/m2 46.45 kg/m2 eCW1 ([facility]) Body height 62 [in_i] 62 [in_i] eCW1 ([facility]) Body weight 254 [lb_av] 254 [lb_av] eCW1 ([facility]) Diastolic blood pressure 78 mm[Hg] 78 mm[Hg] eCW1 ([facility]) Systolic blood pressure 112 mm[Hg] 112 mm[Hg] e CW1 ([facility]) Body temperature 98.7 [degF] 98.7 [degF] eCW1 ( [facility]) Respiratory rate 18 /min 18 /min eCW1 ([facility]) Heart rate 83 /min 83 /min eCW1 ([facility]) Body mass index (BMI) [Ratio] 46.64 kg/m2 46.64 kg/m2 eCW1 ([facility]) Body height 62 [in_i] 62 [in_i] eCW1 ([facility]) Body weight 255 [lb_av] 255 [lb_av] eCW1 ([facility]) Diastolic blood pressure 92 mm[Hg] 92 mm[Hg] eCW1 ([facility]) Systolic blood pressure 125 mm[Hg] 125 mm[Hg] e CW1 ([facility]) Body temperature 98.1 [degF] 98.1 [degF] eCW1 ( [facility]) Respiratory rate 18 /min 18 /min eCW1 ([facility]) Heart rate 87 /min 87 /min eCW1 ([facility]) Body mass index (BMI) [Ratio] 47.18 kg/m2 47.18 kg/m2 W1 ([facility]) Body height 62 [in_i] 62 [in_i] eCW1 ([facility]) Body weight 258 [lb_av] 258 [lb_av] eCW1 ([facility]) Diastolic blood pressure 73 mm[Hg] 73 mm[Hg] eCW1 ([facility]) Systolic blood pressure 122 mm[Hg] 122 mm[Hg] e CW1 ([facility]) Body temperature 98.1 [degF] 98.1 [degF] eCW1 ( [facility]) Respiratory rate 17 /min 17 /min eCW1 ([facility]) Heart rate 87 /min 87 /min eCW1 ([facility]) Body mass index (BMI) [Ratio] 44.15 kg/m2 44.15 kg/m2 eCW1 ([facility]) Body height 62 [in_us] 62 [in_us] eCW1 ([facility]) Body weight Measured 241.4 [lb_av] 241.4 [lb_av ] eCW1 ([facility]) Patient Treatment Plan of Care Planned Activity Planned Date Details Description Data Source (s) Metformin hydrochloride 500 MG Oral Tablet 02/11/2020 12:00:00 AM E DT eCW1 ([facility])
[2020-06-03] MEDS ORDERED: NS 1,000 ML IV ONE (22:00)
[2020-06-03] MEDS ORDERED: ACETAMINOPHEN 500 MG TAB PO ONE (22:00)
[2020-06-03 22:08] LABS: BASO # 0.1 10^3/uL (0.0-0.2); BASO % 0.4 % (0.0-1.0); EOS # 0.1 10^3/uL (0.0-0.5); EOS % 1.1 % (0.0-3.0); HEMATOCRIT 40.2 % (36.0-47.0); HEMOGLOBIN 12.9 g/dl (12.0-15.5); LYMPH # 3.4 10^3/uL (1.5-5.0); LYMPH % 28.9 % (24.0-44.0); MEAN CORPUSCULAR HEMOGLOBIN 29.1 pg (27.0-33.0); MEAN CORPUSCULAR HGB CONC 32.1 g/dl (32.0-36.5); MEAN CORPUSCULAR VOLUME 90.7 fl (80.0-96.0); MONO # 0.6 10^3/uL (0.0-0.8); MONO % 5.2 % (0.0-5.0); NEUTROPHILS # 7.6 10^3/uL (1.5-8.5); PLATELET COUNT, AUTOMATED 301 10^3/uL (150-450); RED BLOOD COUNT 4.43 10^6/uL (4.00-5.40); WHITE BLOOD COUNT 11.9 10^3/uL (4.0-10.0)
--- OUTSIDE RECORDS SUMMARY | 2020-06-03 22:17 | CCD ---
Author Author [facility] Organization [facility] Address Unknown Phone Unavailable Care Team Providers Care Cutting Pressman Name Role Phone Chilango BAUER MD Unavailable Unavailable Chilango BAUER MD Unavailable Unavailable Chilango BAUER MD Unavailable Unavailable Chilango BAUER MD Unavailable Unavailable VENERUSChilango MD Unavailable Unavailable VENERUSChilango MD Unavailable Unavailable VENERUSChilango MD Unavailable Unavailable VENERUSChilango MD Unavailable Unavailable VENERUSChilango MD Unavailable Unavailable NO, PCP Unavailable Unavailable [...] is protected by Article 27-F of the [facility] Public Health law. If you continue you may have access to information: Regarding HIV / AIDS; Provided by facilities licensed or operated by the [facility] Office of Mental Health; or Provided by the [facility] Office for People With Developmental Disabilities. If such information is present, then the following [facility] mandated warning applies: This information has been [...] law may result in a fine or mcfp sentence or both. A general authorization for the release of medical or other information is NOT sufficient authorization for further disc losure. Allergies and Adverse Reactions Type Description Substance Reaction Status Data Source(s ) Drug allergy ALBUTEROL ALBUTEROL TOMI [facility] Albuterol Albuterol Albuterol 1 MG/ML Inhalant Solut ion unsure; childhood reaction Active eCW1 ([facility]) Family History Family Member Name Family Member Gender Family Member Status Date o f Status Description Data Source(s) Unknown Unknown Problem MEDENT ([facility]) Unknown Unknown Problem MEDENT ([facility]) maternal side of family, pgf Encounters Encounter Providers Location Date Indications Data Source(s ) Unknown [address] [facility] [address] 05/22/2020 12:00:00 AM EST eCW1 ([facility]) Outpatient [address] [facility] [place] [address] 03/30/2020 12:00:00 AM EST eCW1 ([facility]) Unknown [address] [facility] [place] [address] 03/30/2020 12:00:00 AM EST eCW1 ([facility]) Outpatient [address] [facility] [place] [address] 02/11/2020 12:00:00 AM EDT eCW1 ([facility]) Outpatient [address] [facility] [place] [address] 11/14/2019 12:00:00 AM EDT eCW1 ([facility]) Unknown [address] [facility] [address] 11/07/2019 12:00:00 AM EDT eCW1 ([facility]) Outpatient [address] [facility] [place] [address] 10/29/2019 12:00:00 AM EDT eCW1 ([facility]) Emergency Attender: GORAN BAUER MDConsultant: PCP NO 10/13/2019 08:24:00 AM EDT - 10/13/2019 10:27:00 AM EDT [facility] Patient discharged. [facility] Alis [address] [facility] [place] [address] 05/03/2019 12:00:00 AM EST eCW1 ([facility]) [facility] Leralonzo [address] [facility] [place] [address] 05/03/2019 12:00:00 AM EST eCW1 ([facility]) [facility] Leralonzo [address] [facility] [address] 04/26/2019 12:00:00 AM EST eCW1 ([facility]) [facility] Symone [address] [facility] [address] 04/05/2019 12:00:00 AM EST eCW1 ([facility]) Medications Medication Brand Name Start Date Product Form Dose Route Admi nistrative Instructions Pharmacy Instructions Status Indications Reaction Description Data Source(s) Metformin hydrochloride 500 MG Oral Tablet Metformin H Cl 500 MG Metformin HCl 500 MG 02/11/2020 12:00:00 AM EDT 1.0 {tablet_with_a_meal} active Metformin HCl 500 MG eCW1 ([facility]) Metformin hydrochloride 500 MG Oral Tablet Metformin H Cl 500 MG Metformin HCl 500 MG 02/11/2020 12:00:00 AM EDT 1.0 {tablet_with_a_meal} active Metformin HCl 500 MG eCW1 ([facility]) Metformin hydrochloride 500 MG Oral Tablet Metformin H Cl 500 MG Metformin HCl 500 MG 02/11/2020 12:00:00 AM EDT 1.0 {tablet_with_a_meal} active Metformin HCl 500 MG eCW1 ([facility]) Metformin hydrochloride 500 MG Oral Tablet Metformin H Cl 500 MG Metformin HCl 500 MG 02/11/2020 12:00:00 AM EDT 1.0 {tablet_with_a_meal} active Metformin HCl 500 MG eCW1 ([facility]) Insurance Providers Payer name Policy type / Coverage type Policy ID Covered republican ID Covered republican's relationship to leroy Policy Leroy Plan Information [facility] COMMUNITY PLAN [facility] [id number] SP [id number] [facility] [id number] SP [id number] [facility]) O [id number] S [id number] [employer] COMMUNITY PLAN XIX [id number] 18 [id number] MEDICAID -O/P [id number] 18 [id number] [id number] 18 [id number] [facility] HUMANA - O/P [id number] 01 [id number] MATTHEW [id number] 18 [id number] 200 [facility] [id number] SP [id number] ANSI-Medicaid [id number] ANSI-Not a Secondary Insurance [id number] ANSI-Not a Secondary Insurance [id number] ANSI-Medicaid [id number] MEDICAID [id number] SP [id number] MATTHEW [id number] SP [id number] 200 [facility] Part B [id number] Self [id number] Medicaid [place] Medigap Part B [id number] Self [id number] [employer] [place] [id number] Self [id number] Medicaid [place] Medigap Part B [id number] Self [id number] [place] Medicaid [id number] Self [id number] [employer] [place] Other 0 Self 0 MATTHEW CARE OF HI XIX MAN -PHYSICIAN [id number] 18 [id number] SELF PAY ONLY [id number] SP [id number] [place] HUMANA [id number] 2 [id number] [facility] [id number] 2 [id number] [employer] [place] O [id number] S [id number] N REGIONAL CLAIMS LUCÍA-O/P [id number] 01 [id number] [employer] [id number] Family Dependent [id number] Problems, Conditions, and Diagnoses Code Display Name Description Problem Type Effective Dates Data Source(s) N92.6 [id number] Irregular menses Problem 11/14/2019 12:00:00 AM EDT eCW1 ([facility]) K76.0 [id number] Fatty liver Problem 11/14/2019 12:00:00 AM E DT eCW1 ([facility]) 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 Problem 10/29/2019 12:00:00 AM EDT eCW1 ([facility]) Y[address] or not applicable Unspecified place or not applicable Diagnosis 10/13/2019 08:24:00 AM EDT [facility] [id number] Exposure to other specified factors, ini tial encounter Exposure to other specified factors, initial encounter Diagnosis 10/13/2019 08:24:00 AM EDT [facility] R945 Abnormal results of liver function studi es Abnormal results of liver function studies Diagnosis 10/13/2019 08:24:00 AM EDT [facility] N3001 Acute cystitis with hematuria Acute cystitis with maura turia Diagnosis 10/13/2019 08:24:00 AM EDT [facility] 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, thoracic region Other intervertebral disc degeneration, thoracic region Diagnosis 09/23 08:24:00 AM EDT [facility] [id number] Strain of muscle and tendon of back wall of thorax, initial encounter Strain of muscle and tendon of back wall of thorax, initial encounter Diagnosis 10/13/2019 08:24:00 AM EDT [facility] M546 Pain in thoracic spine Pain in thoracic spine Diagnosi s 10/13/2019 08:24:00 AM [facility] Surgeries/Procedures Procedure Description Date Indications Data Source(s) URINE TEST 04/26/2019 12:00:00 AM EST eCW1 ([facility]) Results ID Date Data Source [id number] 02/05/2020 11:03:49 AM EDT eCW1 ([facility]) Name Value Range Interpretation Code Description Data Anat rce(s) Supporting Document(s) Hemoglobin A1c/Hemoglobin.total in Blood 5.5 HEMOGLOBIN A1c eCW1 ([facility]) ID Date Data Source LDH LACTATE DEHYDROGENASE 11/07/2019 05:42:21 AM EDT eCW1 ([facility]) Name Value Range Interpretation Code Description Data Anat rce(s) Supporting Document(s) 185 LDH LACTATE DEHYDROGENASE eCW1 ([facility]) ID Date Data Source GAMMA GLUTAMYLTRANSPEPTIDASE 11/07/2019 05:42:21 AM EDT eCW1 ([facility]) Name Value Range Interpretation Code Description Data Anat rce(s) Supporting Document(s) 135 GAMMA GLUTAMYLTRANSPEPTIDASE e CW1 ([facility]) ID Date Data Source Comprehensive Metabolic Profile (CMP) 11/07/2019 05:42:21 AM EDT eCW1 ([facility]) Name Value Range Interpretation Code Description Data Anat rce(s) Supporting Document(s) 12 BLOOD UREA NITROGEN eCW1 ([facility]) 104 GLUCOSE, FASTING eCW1 ([facility]) 0.94 CREATININE FOR GFR eCW1 ([facility]) > 60.0 GLOMERULAR FILTRATION RATE eCW 1 ([facility]) 108 CHLORIDE LEVEL eCW1 ([facility]) 143 SODIUM LEVEL eCW1 ([facility]) 4.3 POTASSIUM SERUM eCW1 ([facility]) 29 CARBON DIOXIDE LEVEL eCW1 ([facility]) 8.6 CALCIUM LEVEL eCW1 ([facility]) 35 AST/SGOT eCW1 ([facility]) 83 ALT/SGPT eCW1 ([facility]) 3.6 ALBUMIN eCW1 ([facility]) 0.5 BILIRUBIN,TOTAL eCW1 ([facility]) 75 ALKALINE PHOSPHATASE eCW1 ([facility]) 7.3 TOTAL PROTEIN eCW1 ([facility]) 1.0 ALBUMIN/GLOBULIN RATIO eCW1 ([facility]) ID Date Data Source CBC with Differential 11/07/2019 05:42:21 AM EDT eCW1 ([facility]) Name Value Range Interpretation Code Description Data Anat rce(s) Supporting Document(s) 7.7 WHITE BLOOD COUNT eCW1 ([facility]) 92.2 MEAN CORPUSCULAR VOLUME eCW1 ( [facility]) 4.47 RED BLOOD COUNT eCW1 ([facility]) 41.2 HEMATOCRIT eCW1 ([facility]) 13.3 HEMOGLOBIN eCW1 ([facility]) 275 PLATELET COUNT, AUTOMATED eCW1 ([facility]) 29.8 MEAN CORPUSCULAR HEMOGLOBIN eC W1 ([facility]) 12.9 RED CELL DISTRIBUTION WIDTH eC W1 ([facility]) 32.3 MEAN CORPUSCULAR HGB CONC eCW1 ([facility]) 32.8 LYMPH % eCW1 ([facility]) 57.2 NEUTROPHILS % eCW1 ([facility]) 6.8 MONO % eCW1 ([facility]) 0.8 BASO % eCW1 ([facility]) 2.1 EOS % eCW1 ([facility]) 2.5 LYMPH # eCW1 ([facility]) 4.4 NEUTROPHILS # eCW1 ([facility]) 0.5 MONO # eCW1 ([facility]) 0.1 BASO # eCW1 ([facility]) 0.2 EOS # eCW1 ([facility]) ID Date Data Source PT-INR 11/07/2019 05:42:10 AM EDT eCW1 ([facility]) Name Value Range Interpretation Code Description Data Anat rce(s) Supporting Document(s) Prothrombin time (PT) 12.8 PROTHROMBIN TI ME eCW1 ([facility]) INR in Platelet poor plasma by Coagulation assay 0.99 INR eCW1 ([facility]) ID Date Data Source TSH 11/07/2019 05:41:06 AM EDT eCW1 ([facility]) Name Value Range Interpretation Code Description Data Anat rce(s) Supporting Document(s) 11.100 THYROID STIMULATING HORMONE eC W1 ([facility]) ID Date Data Source [id number] 10/13/2019 08:24:00 AM EDT [facility] 1 OrderSheet [facility] Emergency Department [address] [place] [address] Phone #: ext- [phone] 10/13/2019 08:09 Patient: [...] Description Priority Entered Acknowledged Initialed 2 OrderSheet [facility] Emergency Department [address] [place] [address] Phone #: ext- [phone] 10/13/2019 08:09 Patient: BEN BUCHANAN Sex: F : 1990 Age: 29yGENERAL ORDERSOrder Description Priority Entered Acknowledged InitialedEKG 08:35 10/13/2019 08:44 Goran Jung R.N. Physician;[Electronically signed by Anali Jung R.N. (10:10/13/2019)][Electronically signed by Goran Bauer Physician (23:37 10/13/2019)][Electronically locked by Anali Jung R.N. (10:10/13/2019)] Name Value Range Interpretation Code Description Data Anat rce(s) Supporting Document(s) ID Date Data Source [id number] 10/13/2019 08:24:00 AM EDT [facility] 1 Medication Reconciliation Report [facility] Emergency Department [address] [place] [address] Phone #: ext- [phone] 10/13/2019 08:09 Patient: [...] Dispense 14 capsule. Refills:0. Substitution permitted.Pharmacy - [facility] - [address] [facility] [address] ; [place], [place] [id number]. .Macrobid 100 mg capsule Take 1 capsule twice a day for 7 days -- for UTI. Dispense 14 capsule. Refills:0. Substitution permitted.Pharmacy - [phone] ; [place] [address]. FaxNumber: . -- Goran Bauer, Physician Name Value Range Interpretation Code Description Data Anat rce(s) Supporting Document(s) ID Date Data Source [id number] 10/13/2019 08:24:00 AM EDT [place] [address] Medication Administration Record [facility] Emergency Department [address] [place] [address] Phone #: ext [phone] 10/13/2019 08:09 Patient: BEN BUCHANAN Sex: F : 1990 Age: 29yWeight: 108.8 kgHeight/Length: 62 inBMI: 43.9ALLERGIES: AlbuterolDate/Time Medication Administered Medication Ordered Name Value Range Interpretation Code Description Data Anat rce(s) Supporting Document(s) ID Date Data Source [id number] 10/13/2019 08:24:00 AM EDT [facility] 1 General Instructions [facility] Emergency Department [address] [place] [address] Phone #: ext [phone] 10/13/2019 08:09 Patient: BEN BUCHANAN Sex: F [...] Dispense 14 capsule. Refills:0. Substitution permitted.Pharmacy - [facility] [address] - [address] [place] [phone]. FaxNumber: .Macrobid 100 mg capsule Take 1 capsule twice a day for 7 days -- for UTI. Dispense 14 capsule. Refills:0. Substitution permitted.Pharmacy - [phone] ; [place] [address]. .Follow-up:Follow up with your doctor in two days if not better. Call for an appointment. Reason for referral: evaluation,treatment and L interscapular back pain / elevated LFTs / UTI.Understanding of the discharge instructions verbalized by patient. ADDITIONAL INFORMATIONBack Pain (Acute or Chronic) 2 General Instructions [facility] Emergency Department [address] [place] [address] Phone #: ext- [phone] 10/13/2019 08:09 Patient: BEN BUCHANAN Sex: F [...] illness. Mechanical problems include: 3 General Instructions [facility] Emergency Department [address] [place] [address] Phone #: [phone] 10/13/2019 08:09 Patient: BEN BUCHANAN Sex: F [...] painful area for 20 4 General Instructions [facility] Emergency Department [address] [place] [address] Phone #: ext- [phone] 10/13/2019 08:09 Patient: [...] or are takingother medicines. You may use jazb-ryf-siyizkv medicine as directed on the bottle to [...] any new findingsthat may affect your care.Call [phone] if any of the following occur: Trouble breathing Confusion Very drowsy or trouble awakening Fainting or loss of consciousness Rapid or very slow heart rate Loss of bowel or bladder control 5 General Instructions [facility] Emergency Department [address] [place] [address] Phone #: ext- [phone] 10/13/2019 08:09 Patient: BEN BUCHANAN Sex: F : 1990 Age: 29yWhen to seek medical adviceCall your healthcare provider right away if any of these occur: Pain becomes worse or spreads to your legs Weakness or numbness in one or both legs Numbness in the groin or genital area [phone] [employer]. [address] [place] [address]. All rights reserved. This information is not [...] ofcystitis is an infection. 6 General Instructions [facility] Emergency Department [address] [place] [address] Phone #: ext- [phone] 10/13/2019 08:09 [id number] Sex: F : 1990 Age: 29ySymptomsThe infection [...] catheter inserted Older age 7 General Instructions [facility] Emergency Department [address] [place] [address] Phone #: ext- [phone] 10/13/2019 08:09 Patient: [...] your symptoms are gone. 8 General Instructions [facility] Emergency Department [address] [place] [address] Phone #: ext- [phone] 10/13/2019 08:09 Patient: [...] if the results will affect your treatment.Call [phone] if any of the following occur: Trouble [...] swelling in the outer vaginal area (labia) [phone] [employer]. [address] [place] [address], [place] [address]. All rights reserved. This information is not intended as asubstitute for professional medical care. Always follow your healthcare professional's instructions. 9 General Instructions [facility] Emergency Department [address] [place] [address] Phone #: ext- [phone] 10/13/2019 08:09 Patient: BEN BUCHANAN Sex: F : 1990 Age: 29yYou have been given the following additional informati on:Back Pain (Acute or Chronic)Bladder Infection, Female (Adult)Limit lifting.(Electronically signed by Goran Bauer, Physician 10/13/2019 23:37) Name Value Range Interpretation Code Description Data Anat rce(s) Supporting Document(s) ID Date Data Source [id number] 10/13/2019 08:24:00 AM EDT [facility] 1 Clinical Report - Nurses [facility] Emergency Department [address] [place] [address] Phone #: ext- [phone] 10/13/2019 08:09 Patient: [...] of recent trauma. 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 Sepsis Screen negative. No suspected or confirmed signs ofinfection present. (08:15 10/13/2019). --08:17 10/13/19 Anali Jung R.N.08:12 10/13/19. HR: 96. RR: 18. O2 saturation: 97% on room air. Temp: 98 F (oral). Pain level now 8/10.--08:17 10/13/19 Anali Jung R.N.08:36 10/13/19. BP: 130/81. --08:36 10/13/19 Anali Jung R.N.Weight: 108.8 kg stated. Height/Length: 62 inches Per Patient. BMI: 43.9. --08:12 10/13/19 Anali Jung R.N.MedicationsNone. --08:13 10/13/19 Anali Jung R.N.AllergiesAlbuterol. --08:13 10/13/19 Anali Jung R.N.PRO BLEMS:ITP.Hypothyroidism. --08:14 10/13/19 Anali Jung R.N.Medication/allergy information source: the patient. --08:17 10/13/19 Anali Jung R.N.ADDITIONAL SURGERIES:Adenoidectomy.Cholecystectomy.Tonsillectomy. --08:14 10/13/19 Anali Jung R.N. 2 Clinical Report - Nurses [facility] Emergency Department [address] [place] [address] Phone #: ext- [phone] 10/13/2019 08:09 Patient: [...] reach. Side 3 Clinical Report - Nurses [facility] Emergency Department [address] [place] [address] Phone #: ext- [phone] 10/13/2019 08:09 Patient: BEN BUCHANAN Sex: F : 1990 Age: 29y rails [...] F. Pain level now 10. --10:24 10/13/19 [place] senior clinical sas programmer, [place], ER Tech1 Departure time: late entry - 10:27 10/13/2019. Condition at departure: stable. No learning barriers present. Discharge instructions provided and reviewed with the patient. Reviewed warnings (please see paper copy). Reviewed medication(s) side effects, precautions, dosing and course information. Prescription(s) sent electronically to pharmacy ([facility]). Activity restrictions reviewed. Patient verbalized understanding. Written instructions provided in Brazilian. ( F/U with PCP for repeat LFT's). The patient was discharged by the physician. She was discharged home and accompanied by family. She left ambulatory and via private vehicle. Patient driving. --10:29 10/13/19 Anali Jung R.N.Locked/Released at 10/13/2019 10:29 by Anali Jung R.N. Name Value Range Interpretation Code Description Data Anat rce(s) Supporting Document(s) ID Date Data Source [id number] 10/13/2019 08:24:00 AM EDT [facility] 1 Clinical Report - Physicians/Mid Levels [facility] Emergency Department [address] [place] [address] Phone #: ext- [phone] 10/13/2019 08:09 [id number] Sex: F : 1990 Age: 29y Time [...] inspection. 2 Clinical Report - Physicians/Mid Levels [facility] Emergency Department [address] [place] [address] Phone #: ext- [phone] 10/13/2019 08:09 Patient: BEN BUCHANAN Sex: F [...] results 3 Clinical Report - Physicians/Mid Levels [facility] Emergency Department [address] [place] [address] Phone #: ext- [phone] 10/13/2019 08:09 Patient: [...] MORPH NOT INDICATEDD-Dimer: (INGA: 10/13/2019 08:45) ( [facility] 10/13/2019 09:11) Final results Test Result Flag Units (Reference) D-DIMER QUANT <0.27 ug/mL (0.27 - 0.50)Urinalysis: (INGA: 10/13/2019 08:53) ( [facility] 10/13/2019 09:18) Final results Test Result Flag [...] NONE 4 Clinical Report - Physicians/Mid Levels [facility] Emergency Department [address] [place] [address] Phone #: ext- [phone] 10/13/2019 08:09 Patient: BEN BUCHANAN Sex: F : 1990 Age: 29yLipase: (INGA: 10/13/2019 08:45) ( [facility] 10/13/2019 09:37) Final results Test Result Flag Units (Reference) LIPASE 41 U/L (13 - 60)Beta-HCG, Qual Serum: (INGA: 10/13/2019 08:45) ( [facility] 10/13/2019 09:21) Final results Test Result Flag Units (Reference) HCG SERUM QUAL NEGATIVE (NORMAL: NEGAT HCG SERUM QL REENTER NEGATIVE (NORMAL: NEGAT { KIT LOT # [id number] ){ KIT EXP DATE02/03/21 ){ PROCEDURAL CONTROL VALID)EKG: (INGA: 10/13/2019 08:35) ( [facility] 10/13/2019 12:30) In ProgressChest 2 View: (INGA: 10/13/2019 08:35) ( [facility] 10/13/2019 12:00) In ProgressCHEST 2 VIEWSReason(s): Chest PainTRANSPORTATION: WC IV? O2? Oxygen?(No) Room: ED: HCG Pending CMTS: Posterior L interscapular chest pain / L u Exam CHEST 2 [place] [address] PHONE: [phone] FAX: [phone] Name .................. : DEWAYNE Arellano Acct Number.................. : [id number] ROOM. ................. : TR-1A MR Number ................... : [id number] Stay type ............. : E/R Discharge Date......... ... : 10/13/19 Admit Date ......... : 10/13/19 Admit Phys .................... : VENERUS BR Date of ....... : 1990 Family Phys ................... : NO PCP Phone .................. : [phone] Age ................................ : 29 Film# .................. .:[id number] Sex ................................. : F Unsigned transcriptions are preliminary reports and do not represent a medical or legal document CHEST 2 VIEWS [id number] COMPLETE:10/13/19 10:17 SABINO [id number] Reason(s): Chest Pain CHEST X-RAY: 2-VIEWS INDICATION: Chest pain. FINDINGS: The car diac and mediastinal silhouettes appear normal and the lungs are clear. The bones and soft tissues are normal. The upper abdomen is unremarkable. IMPRESSION: No acute disease identifiable. Electronically Reviewed and Signed By TESHA SIGNDABRAVO FRANKS Clinical Report - Physicians/Mid Levels [facility] [place] [address] Phone #: ext- [phone] 10/13/2019 08:09 Patient: BEN BUCHANAN Sex: F [...] Discharged home in good and improved condition (10:Oct 13 2019). Condition: good.CLINICAL IMPRESSION Abnormal liver [...] capsule. Refills: 0. Substitution permitted. Pharmacy - [facility] - [address] [facility] [facility] [address] ; [place], [place] [id number]. . 6 Clinical Report - Physicians/Mid Levels [facility] [address] [place] [address] Phone #: ext- [phone] 10/13/2019 08:09 Patient: BEN BUCHANAN Sex: Shaunna : 1990 Age: 29y Macrobid 100 mg capsule Take 1 capsule twice a day for 7 days -- for UTI. Dispense 14 capsule. Refills: 0. Substitution permitted. Pharmacy - [facility] [phone] ; [place] [address]. . Follow-up: Follow up with your doctor in two days if not better. Call for an appointment. Reason for referral: evaluation, treatment and L interscapular back pain / elevated LFTs / UTI. Understanding of the discharge instructions verbalized by patient.(Electronically signed by Goran Bauer, Physician 10/13/2019 23:37) Name Value Range Interpretation Code Description Data [facility] rce(s) Supporting Document(s) ID Date Data Source [id number] 10/13/2019 08:24:[address] [facility] for BEN BUCHANAN VisitID: [id number] Date: 9:26hepatitis panel negative(Electronically signed by Hope Rivera RN - 10/15/2019 9:26) Name Value Range Interpretation Code Description Data Anat rce(s) Supporting Document(s) ID Date Data Source [id number] 10/14/2019 02:15:00 PM EDT [facility] [address] [place] [address] PHONE: [phone] FAX: [phone] Name .................. : DEWAYNE Arellano Acct Number.................. : [id number] ROOM. ................. : TR-1A MR Number ................... : [id number] Stay type ............. : E/R Discharge Date......... ... : 10/13/19 Admit Date ....... .. : 10/13/19 Admit Phys .................... : KAIDENS ADOLFO Date of ....... : 1990 Family Phys ................... : NO PCP Phone .................. : [phone] Age ................................ : 29 Film# .................. .:[id number] Sex ................................. : F Unsigned transcriptions are preliminary reports and do not represent a medical or legal document CHEST 2 VIEWS [id number] COMPLETE:10/13/19 10:17 SABINO [id number] Reason(s): Chest Pain CHEST X-RAY: 2-VIEWS INDICATION: [...] rce(s) Supporting Document(s) ID Date Data Source [id number] 10/14/2019 09:34:00 AM EDT [facility] [address] [place] [address] RESPIRATORY CARE REPORT ==== ---------NAME------- NUMBER SEX AGE ADMIT DISC. XRAY# F/C ILDEFONSO BEN R [id number] F 29 10/13/19 10/13/19 [id number] P E/R DATE OF : 1990 M/R# [id number] #: [id number] TR-1A LOCATION: [place] [id number] COMPLE TE:10/13/19 12:30 M [id number] PHYSICIAN: LIZETTE MATA Name Value Range Interpretation Code Description Data Anat rce(s) Supporting Document(s) ID Date Data Source [id number] 10/17/2019 01:39:00 PM EDT [facility] Name Value Range Interpretation Code Description Data Anat rce(s) Supporting Document(s) CULTURE URINE [facility] Ho spital CORRECTE D REPORT _CULTURE URINE_$$[id number]$$[id number]$$[id number]$$[id number]$$[id number]$$[id number]$$[id number]$$178253$$057325$$ 559726$$311809$$[id number]$$91114 5$$[id number]$$638986$$612146$$453757$$899605$$749919$$182836$$491545$$182832$$61142 7$$510811$$295244$$[id number]$$[id number] -- Continued on next page --Patient: DEWAYNE CONTRERAS R Order: [id number] Page 2Culture: CULTURE URINE Status: Final ==== -- Continued on next page --Patient: DEWAYNE CONTRERAS R Order: [id number] Page 2Culture: CULTURE URINE Status: Prel im =$$[id number]$$[id number] DATE/TIME: 10/17/2019 12:06Culture: CULTURE URINE Status: FinalUrine Culture,Comprehensive: [id number] urogenital flora25,000- 50,000 colony forming units per mL Previous result entered on 10/16/2019 04:53 ET Specimen has been received and testing has been initiated.P1 Test performed by: [facility] John JORGENSEN #: [id number] [address] [place] [id number] [facility] [id number] Director : Blu Love MD NPI #:Broadcast Producer : [email or web address] REF FOLLOWING RESULTS REPORTED IN ERROR REPORTED DATE/TIME: 10/16/2019 05:06 ID Date Data Source [id number] 10/13/2019 09:18:00 AM EDT [facility] Name Value Range Interpretation Code Description Data Anat rce(s) Supporting Document(s) URINALYSIS [facility] anai URINALYSIS SOURCE Clean Catch [facility] ital COLOR yellow NORMAL: Yellow [facility] CLARITY cloudy NORMAL: Clear [facility] Specific gravity of Urine by Test strip 1.020 1.001 - 1.030 [facility] pH 6 5 - 9 [facility] Glucose [Mass/volume] in Urine by Test strip NORM NORMAL: Negat [facility] Bilirubin.total [Presence] in Urine by Test strip NEG NORMAL: Negative [facility] Ketones [Presence] in Urine by Test strip NEG NORMAL: Negative [facility] Protein [Mass/volume] in Urine by Test strip NEG NORMAL: Negat [facility] Nitrite [Presence] in Urine by Test strip NEG NORMAL: Negative [facility] BLOOD NEG NORMAL: Negative [facility] Leukocyte esterase [Presence] in Urine by Test strip 500 LOGAN L: Negative A [facility] Urobilinogen [Mass/volume] in Urine by Test strip NOR less acrlos n 1.0 mg/dL [facility] MICROSCOPIC See Below [facility] ital WBC 40 - 50 NORMAL: NONE SEEN A [facility] Erythrocytes [#/volume] in Urine by Test strip 1 - 3 NORMAL: NON E SEEN [facility] EPITHELIAL MANY NORMAL: NONE SEEN A [facility] Bacteria [Presence] in Urine sediment by Light microscopy 1+ SMALL NORMAL: NONE SEEN [facility] Mucus [Presence] in Urine sediment by Light microscopy 2+ NOR MAL: NONE SEEN A [facility] ID Date Data Source [id number] 10/15/2019 06:21:00 AM EDT [facility] Name Value Range Interpretation Code Description Data Anat rce(s) Supporting Document(s) Hepatitis A virus IgM Ab [Presence] in Serum or Plasma by Im munoassay Negative Negative [facility] Hepatitis B virus surface Ag [Presence] in Serum or Pl asma by Immunoassay Negative Negative [facility] Hepatitis B virus core IgM Ab [Presence] in Serum or P lasma by Immunoassay Negative Negative [facility] Hepatitis C virus Ab Signal/Cutoff in Serum or Plasma by Immunoassay <0.1 s/coratio 0.0-0.9 [facility] Negative: < 0.8 Indeterminate: 0.8 - 0.9 Positive: > 0.9 The CDC recommends that a positive HCV antibody result be followed up with a HCV Nucleic Acid Amplification test (517448). ID Date Data Source [id number] 10/13/2019 09:37:00 AM EDT [facility] Name Value Range Interpretation Code Description Data Anat rce(s) Supporting Document(s) Lipase [Enzymatic activity/volume] in Serum or Plasma 41 U/L 13 - 60 [facility] ID Date Data Source [id number] 10/13/2019 09:37:00 AM EDT [facility] Name Value Range Interpretation Code Description Data Anat rce(s) Supporting Document(s) COMPREHENSIVE METABOLIC PANEL [facility] COMPREHENSIVE METABOLIC PANEL Sodium [Moles/volume] in Serum or Plasma 137 mEq/L 134 - 153 [facility] Potassium [Moles/volume] in Serum or Plasma 4.3 mEq/L 3.6 - 5.0 [facility] Chloride [Moles/volume] in Serum or Plasma 102 mEq/L 98 - 107 [facility] Carbon dioxide, total [Moles/volume] in Serum or Plasma 23 MEQ/L 22 - 30 [facility] Glucose [Mass/volume] in Serum or Plasma 110 MG/DL 65 - 110 [facility] BUN 16 MG/DL 7 - 21 [facility] al Creatinine [Mass/volume] in Serum or Plasma 0.8 MG/DL 0.7 - 1.5 [facility] BUN/CREAT 20 8 - 27 [facility] Protein [Mass/volume] in Serum or Plasma 8.0 G/DL 6.3 - 8.2 [facility] Albumin [Mass/volume] in Serum or Plasma 4.5 G/DL 3.9 - 5.0 [facility] Globulin [Mass/volume] in Serum by calculation 3.5 GM/DL 2.4 - 3.2 H [facility] A/G RATIO 1.3 0.8 - 2.0 [facility] Calcium [Mass/volume] in Serum or Plasma 9.4 MG/DL 8.4 - 10.2 [facility] Bilirubin.total [Mass/volume] in Serum or Plasma <0.7 MG/DL 0.2 - 1.3 [facility] Alkaline phosphatase [Enzymatic activity/volume] in Serum or Plasma 76 U/L 38 - 126 [facility] Aspartate aminotransferase [Enzymatic activity/volume] in Serum or Plasma 53 U/L 5 - 40 H [facility] Alanine aminotransferase [Enzymatic activity/volume] in Seru m or Plasma 88 U/L 7 - 56 H [facility] Anion gap 3 in Serum or Plasma 12.0 mmol/L 8.0 - 16.0 [facility] AGE 29 yrs [facility] al NON-AA GFR >60 mL/min [facility] ital AFR AMER GFR >60 mL/min [facility] sp[facility] Male GFR In terprentation 20-49 [...] >32 mL/min Normal ID Date Data Source [id number] 10/13/2019 09:20:00 AM EDT [facility] Name Value Range Interpretation Code Description Data Anat rce(s) Supporting Document(s) HCG SERUM QUAL NEGATIVE NORMAL: NEGATIVE [facility] HCG SERUM QL REENTER NEGATIVE NORMAL: NEGATIVE [facility] { KIT LOT # [id number] ){ KIT EXP DATE 02/03/21 ){ PROCEDURAL CONTROL VALID ) ID Date Data Source [id number] 10/13/2019 09:11:00 AM EDT [facility] Name Value Range Interpretation Code Description Data Anat rce(s) Supporting Document(s) Fibrin D-dimer FEU [Mass/volume] in Platelet poor plasma <0. 27 ug/mL 0.27 - 0.50 [facility] ID Date Data Source [id number] 10/13/2019 09:09:00 AM EDT [facility] Name Value Range Interpretation Code Description Data Anat rce(s) Supporting Document(s) CBC W/AUTOMATED DIFF [facility] COMPLETE BLOOD COUNT Leukocytes [#/volume] in Blood by Automated count 11.4 10^3/uL 4.2 - 11.0 H [facility] Erythrocytes [#/volume] in Blood by Automated count 4.69 10^6/uL 4. 20 - 5.40 [facility] Hemoglobin [Mass/volume] in Blood 14.1 g/dL 12.0 - 16.0 [facility] Hematocrit [Volume Fraction] of Blood by Automated count 42.2 % 3 7.0 - 47.0 [facility] Erythrocyte mean corpuscular volume [Entitic volume] by Auto mated count 90.0 fL 81.0 - 101 [facility] Erythrocyte mean corpuscular hemoglobin [Entitic mass] by Automated count 30.1 pg 27.0 - 34.0 [facility] Erythrocyte mean corpuscular hemoglobin concentration [Mass/volume] by Automated count 33.4 g/dL 31.0 - 36.0 [facility] Erythrocyte distribution width [Ratio] by Automated count 13.2 % 11.5 - 14.5 [facility] Platelets [#/volume] in Blood by Automated count 279 10^3/uL 150 - 45 0 [facility] Platelet mean volume [Entitic volume] in Blood by Automated count 10.7 fL 7.4 - 10.4 H [facility] Neutrophils/100 leukocytes in Blood by Automated count 63.5 % 37. 0 - 80.0 [facility] Lymphocytes/100 leukocytes in Blood by Manual count 27.4 % 25.0 - 40.0 [facility] Monocytes/100 leukocytes in Blood by Automated count 6.7 % 3.0 - 8.0 [facility] Eosinophils/100 leukocytes in Blood by Automated count 1.5 % 0.0 - 7.0 [facility] Basophils/100 leukocytes in Blood by Automated count 0.5 % 0.0 - 2.5 [facility] %IG 0.4 % 0.0 - 0.0 [facility] %NRBC 0.0 % 0.0 - 0.0 [facility] Neutrophils [#/volume] in Blood by Automated count 7.26 10^3/uL 2.00 - 6.90 H [facility] Lymphocytes [#/volume] in Blood by Automated count 3.13 10^3/uL 0.60 - 3.40 [facility] Monocytes [#/volume] in Blood by Automated count 0.77 10^3/uL 0.00 - 0.90 [facility] Eosinophils [#/volume] in Blood by Automated count 0.17 10^3/uL 0.00 - 0.70 [facility] Basophils [#/volume] in Blood by Automated count 0.06 10^3/uL 0.00 - 0.20 [facility] #IG 0.05 10^3/uL 0.00 - 0.10 [facility] ospital #NRBC 0.00 10^3/uL 0.00 - 0.00 [facility] MANUAL DIFF NOT INDICATED [facility] RBC MORPH NOT INDICATED [facility] Procedure Social History Code Duration Value Status Description Data Source(s ) Smoking 03/30/2020 12:00:00 AM EST Never Smoker completed Never S moker eCW1 ([facility]) Smoking 03/30/2020 12:00:00 AM EST Never Smoker completed Never S moker eCW1 ([facility]) Smoking 03/30/2020 12:00:00 AM EST Never Smoker completed Never S moker eCW1 ([facility]) Smoking 02/11/2020 12:00:00 AM EDT Never Smoker completed Never S moker eCW1 ([facility]) Smoking 11/14/2019 12:00:00 AM EDT Never Smoker completed Never S moker eCW1 ([facility]) Smoking 10/29/2019 12:00:00 AM EDT Never Smoker completed Never S moker eCW1 ([facility]) Smoking 10/29/2019 12:00:00 AM EDT Never Smoker completed Never S moker eCW1 ([facility]) Vital Signs ID Date Data Source UNK Name Value Range Interpretation Code Description Data Source(s) Diastolic blood pressure 80 mm[Hg] 80 mm[Hg] eCW1 ([facility]) Systolic blood pressure 134 mm[Hg] 134 mm[Hg] e CW1 ([facility]) Body temperature 97.3 [degF] 97.3 [degF] eCW1 ( [facility]) Respiratory rate 17 /min 17 /min eCW1 ([facility]) Heart rate 98 /min 98 /min eCW1 ([facility]) Body mass index (BMI) [Ratio] 45.98 kg/m2 45.98 kg/m2 eCW1 ([facility]) Body height 62 [in_i] 62 [in_i] eCW1 ([facility]) Body weight 251.4 [lb_av] 251.4 [lb_av] eCW1 ([facility]) Diastolic blood pressure 72 mm[Hg] 72 mm[Hg] eCW1 ([facility]) Systolic blood pressure 113 mm[Hg] 113 mm[Hg] e CW1 ([facility]) Body temperature 97.6 [degF] 97.6 [degF] eCW1 ( [facility]) Respiratory rate 16 /min 16 /min eCW1 ([facility]) Heart rate 87 /min 87 /min eCW1 ([facility]) Body mass index (BMI) [Ratio] 46.45 kg/m2 46.45 kg/m2 eCW1 ([facility]) Body height 62 [in_i] 62 [in_i] eCW1 ([facility]) Body weight 254 [lb_av] 254 [lb_av] eCW1 ([facility]) Diastolic blood pressure 78 mm[Hg] 78 mm[Hg] eCW1 ([facility]) Systolic blood pressure 112 mm[Hg] 112 mm[Hg] e CW1 ([facility]) Body temperature 98.7 [degF] 98.7 [degF] eCW1 ( [facility]) Respiratory rate 18 /min 18 /min eCW1 ([facility]) Heart rate 83 /min 83 /min eCW1 ([facility]) Body mass index (BMI) [Ratio] 46.64 kg/m2 46.64 kg/m2 eCW1 ([facility]) Body height 62 [in_i] 62 [in_i] eCW1 ([facility]) Body weight 255 [lb_av] 255 [lb_av] eCW1 ([facility]) Diastolic blood pressure 92 mm[Hg] 92 mm[Hg] eCW1 ([facility]) Systolic blood pressure 125 mm[Hg] 125 mm[Hg] e CW1 ([facility]) Body temperature 98.1 [degF] 98.1 [degF] eCW1 ( [facility]) Respiratory rate 18 /min 18 /min eCW1 ([facility]) Heart rate 87 /min 87 /min eCW1 ([facility]) Body mass index (BMI) [Ratio] 47.18 kg/m2 47.18 kg/m2 eCW1 ([facility]) Body height 62 [in_i] 62 [in_i] eCW1 ([facility]) Body weight 258 [lb_av] 258 [lb_av] eCW1 ([facility]) Diastolic blood pressure 73 mm[Hg] 73 mm[Hg] eCW1 ([facility]) Systolic blood pressure 122 mm[Hg] 122 mm[Hg] e CW1 ([facility]) Body temperature 98.1 [degF] 98.1 [degF] eCW1 ( [facility]) Respiratory rate 17 /min 17 /min eCW1 ([facility]) Heart rate 87 /min 87 /min eCW1 ([facility]) Body mass index (BMI) [Ratio] 44.15 kg/m2 44.15 kg/m2 eCW1 ([facility]) Body height 62 [in_us] 62 [in_us] eCW1 ([facility]) Body weight Measured 241.4 [lb_av] 241.4 [lb_av ] eCW1 ([facility]) Patient Treatment Plan of Care Planned Activity Planned Date Details Description Data Source (s) Metformin hydrochloride 500 MG Oral Tablet 02/11/2020 12:00:00 AM E DT eCW1 ([facility])
--- NOTE | 2020-06-03 22:56 | REPVR ---
PROCEDURE INFORMATION: Exam: US First Trimester, Transabdominal Exam date and time: 06/03/2020 10:13 PM Age: 30 years old Clinical indication: Pain; Other: Cramping; Gestational age or lmp: 7w 1d; ; Additional info: Lower abd pain/cramping, 8 weeks TECHNIQUE: Imaging protocol: Real-time transabdominal obstetrical ultrasound of the maternal pelvis and a first trimester , less than 14 weeks 0 days, with image documentation. COMPARISON: No relevant prior studies available. FINDINGS: Gestation: A single intrauterine gestational sac is identified with pole. The yolk sac is poorly demonstrated. Embryonic/ heart rate: heart motion is identified, with a heart rate of 146 BPM. Placenta: Adjacent to the gestational sac, there is a complex area of hypoechogenicity measuring 1.9 x 1.2 x 0.6 cm, concerning for subchorionic hemorrhage. Amniotic fluid: Amniotic fluid is subjectively normal for gestational age. BIOMETRY: Gestational age (AUA): The estimated gestational age is 7 weeks 2 days. Estimated due date (AUA): The estimated date of delivery is 01/18/2021. [place]-Rump length: The crown-rump length is 10.9 mm. MATERNAL: Uterus: Unremarkable, as visualized. Cervix: Limited evaluation. Right adnexa: Within the right ovary, there is a mildly complex cyst or corpus luteum cyst measuring 4.3 x 2.8 x 3.0 cm. There is preservation of blood flow within the right ovary. Left adnexa: The left ovary is not visualized, which can be contributed by bowel gas. Intraperitoneal space: No significant intraperitoneal free fluid. IMPRESSION: 1. A single viable intrauterine fetus is identified. 2. The estimated gestational age is 7 weeks 2 days. 3. Adjacent to the gestational sac, there is a complex area of hypoechogenicity measuring 1.9 x 1.2 x 0.6 cm, concerning for subchorionic hemorrhage. 4. Within the right ovary, there is a mildly complex cyst or corpus luteum cyst measuring 4.3 x 2.8 x 3.0 cm. 5. The left ovary is not visualized. 6. Follow-up ultrasonography recommended. Electronically signed by: Lazaro Parry On 06/03/2020 22:56:41 PM
[2020-06-04 00:11] LABS: ALBUMIN 4.1 GM/DL (3.2-5.2); ALT/SGPT 64 U/L (12-78); BILIRUBIN,DIRECT < 0.1 MG/DL (0.0-0.2); BILIRUBIN,TOTAL 0.2 MG/DL (0.2-1.0); BLOOD UREA NITROGEN 10 MG/DL (7-18); CALCIUM LEVEL 9.3 MG/DL (8.5-10.1); CARBON DIOXIDE LEVEL 27 MEQ/L (21-32); CHLORIDE LEVEL 103 MEQ/L (98-107); GLOMERULAR FILTRATION RATE > 60.0 (>60); GLUCOSE, FASTING 79 MG/DL (70-100); HCG, SERUM QUANTITATIVE 62656 MIU/ML; LIPASE 154 U/L (73-393); POTASSIUM SERUM 3.7 MEQ/L (3.5-5.1); SODIUM LEVEL 139 MEQ/L (136-145); TOTAL PROTEIN 7.6 GM/DL (6.4-8.2)
[2020-06-04 00:50] VITALS: BP 127/59
== END 2020-06-04 00:58 | disposition home or self-care (01) ==
LOC: M ED 20:59
DX: Z32.01 Encounter for pregnancy test, result positive (principal); N83.201 Unspecified ovarian cyst, right side; E03.9 Hypothyroidism, unspecified; F33.9 Major depressive disorder, recurrent, unspecified; F41.9 Anxiety disorder, unspecified; D69.3 Immune thrombocytopenic purpura; E66.9 Obesity, unspecified; Z79.899 Other long term (current) drug therapy; Z79.890 Hormone replacement therapy; Z3A.01 Less than 8 weeks gestation of pregnancy; Z88.8 Allergy status to other drugs, medicaments and biological substances

== ENCOUNTER 2020-07-06 18:16 | Emergency (ER) | payer OTHER ==
[~2020-07-06] VITALS: Ht 157.5 cm; Wt 112.7 kg
[2020-07-06] MEDS ORDERED: LR 1,000 ML IV ONE (19:50)
[2020-07-06] MEDS ORDERED: KETOROLAC 30 MG/ML 1ML VIAL IV ONE (19:50)
[2020-07-06] MEDS ORDERED: ONDANSETRON 4MG/2ML VIAL IV ONE (20:00)
[2020-07-06 20:33] LABS: BASO % 0.7 % (0.0-1.0); EOS % 1.8 % (0.0-3.0); HEMATOCRIT 41.4 % (36.0-47.0); HEMOGLOBIN 13.3 g/dl (12.0-15.5); LYMPH % 29.5 % (24.0-44.0); MEAN CORPUSCULAR HEMOGLOBIN 29.6 pg (27.0-33.0); MEAN CORPUSCULAR HGB CONC 32.1 g/dl (32.0-36.5); MONO % 7.3 % (2.0-8.0); NEUTROPHILS % 60.3 % (36.0-66.0); PLATELET COUNT, AUTOMATED 317 10^3/uL (150-450); WHITE BLOOD COUNT 8.4 10^3/uL (4.0-10.0)
[2020-07-06 20:34] LABS: BASO # 0.1 10^3/uL (0.0-0.2); EOS # 0.2 10^3/uL (0.0-0.5); LYMPH # 2.5 10^3/uL (1.5-5.0); MONO # 0.6 10^3/uL (0.0-0.8)
[2020-07-06 21:06] LABS: ALBUMIN 3.7 GM/DL (3.2-5.2); ALT/SGPT 51 U/L (12-78); BILIRUBIN,DIRECT 0.1 MG/DL (0.0-0.2); BILIRUBIN,TOTAL 0.3 MG/DL (0.2-1.0); BLOOD UREA NITROGEN 8 MG/DL (7-18); CALCIUM LEVEL 8.9 MG/DL (8.5-10.1); CARBON DIOXIDE LEVEL 29 MEQ/L (21-32); CHLORIDE LEVEL 107 MEQ/L (98-107); CREATININE FOR GFR 0.76 MG/DL (0.55-1.30); GLOMERULAR FILTRATION RATE > 60.0 (>60); GLUCOSE, FASTING 87 MG/DL (70-100); HCG, SERUM QUANTITATIVE 13 MIU/ML; POTASSIUM SERUM 4.3 MEQ/L (3.5-5.1); SODIUM LEVEL 139 MEQ/L (136-145)
--- NOTE | 2020-07-06 21:13 | REPVR ---
PROCEDURE INFORMATION: Exam: US Pelvis, Transvaginal Exam date and time: 07/06/2020 8:53 PM Age: 30 years old Clinical indication: Pelvic pain; Prior surgery; Surgery date: <1 month; Surgery type: Suction evacuation of ; Additional info: R/O ovarian torsioan TECHNIQUE: Imaging protocol: Real-time transvaginal pelvic ultrasound with image documentation. Transvaginal imaging was used for better evaluation of the endometrium, adnexa, and/or cervix. COMPARISON: US PELVIC NON-OB COMPLETE 01/20/2018 10:42 PM FINDINGS: Uterus/cervix: Uterus measures 8.8 x 4.3 x 5.3 cm. Endometrial echo complex measures 9.6 mm. Mildly heterogeneous appearance of the endometrial echo complex. Thickening most likely related to surgery. Clinical correlation to exclude infection suggested. Right adnexa: Right ovary measures 4.1 x 2.7 x 2.9 cm. Normal flow. Collapsing cyst right ovary measures 1.3 x 0.6 x 1 cm. Left adnexa: Left ovary measures 3.3 x 2.1 x 2.5 cm. Normal flow. Intraperitoneal space: No free fluid. IMPRESSION: Endometrial echo complex measures 9.6 mm. Mildly heterogeneous appearance of the endometrial echo complex. Thickening most likely related to surgery. Clinical correlation to exclude infection suggested. Electronically signed by: Tremaine Ramirez On 07/06/2020 21:13:12 PM
[2020-07-06] MEDS ORDERED: IBUP80TA PO (23:40)
[2020-07-06] MEDS ORDERED: PERCOCET 5MG/325MG TAB PO ONE (23:45)
[2020-07-07 00:02] VITALS: BP 122/72
== END 2020-07-07 00:04 | disposition home or self-care (01) ==
LOC: M ED 18:16
DX: N83.201 Unspecified ovarian cyst, right side (principal); R11.2 Nausea with vomiting, unspecified; Z79.899 Other long term (current) drug therapy
CPT/HCPCS: 76830; 80048; 80076; 81001; 84702; 85025; 86850; 86900; 86901; 87088; 87186; 93976; 96365; 96375; 99284; J1885; J2405

== ENCOUNTER → 2020-08-13 | Outpatient (CLI) | payer OTHER | LOC: M LAB 10:39 | PROVIDERS: ATTEND Internal Medicine Gastroenterology | DX: K58.0 Irritable bowel syndrome with diarrhea (principal) ==

== ENCOUNTER 2020-09-07 13:06 | Outpatient (RCR) | payer MEDICAID | END 2020-09-21 | LOC: M OUTALCOH 13:06 | PROVIDERS: ATTEND Psychiatry & Neurology Psychiatry | DX: F10.20 Alcohol dependence, uncomplicated (principal) ==

== ENCOUNTER → 2020-10-14 | Outpatient (CLI) | payer MEDICAID ==
[~2020-10-14] MED LIST changes: +LEVO75TA4
== END ==
LOC: M LABSMTC 11:06
PROVIDERS: ATTEND Anesthesiology
DX: Z20.828 Contact with and (suspected) exposure to other viral communicable diseases (principal); Z11.59 Encounter for screening for other viral diseases

== ENCOUNTER 2020-10-19 11:52 | Day surgery (SDC) | payer OTHER ==
[~2020-10-19] VITALS: Ht 154.9 cm; Wt 110.7 kg
[~2020-10-19 11:52] MED LIST changes: +NS 1,000 ML IV ONE
[2020-10-19] MEDS ORDERED: LIDOCAINE 2% 100MG/5ML SDV (FOR ANES.) As Ordered ONE (12:37)
[2020-10-19] MEDS ORDERED: fentaNYL 100 MCG/2 ML INJECTION (J3010) As Ordered ONE (12:37)
[2020-10-19] MEDS ORDERED: propofoL 200 MG/20 ML VIAL As Ordered ONE (12:37)
--- NOTE | 2020-10-19 12:53 | ROOR ---
Patient Name: Micaela Streeter Procedure Date: 10/19/2020 12:40 PM Date of : 1990 Age: 30 Room: [facility] Gender: Female Note Status: Finalized Procedure: Upper GI endoscopy Indications: Heartburn, Nausea Providers: Rubin David MD Referring MD: Luzma ALFORD Requesting Provider: Medicines: Monitored Anesthesia Care Complications: No immediate complications. Procedure: Pre-Anesthesia Assessment: - The heart rate, respiratory rate, oxygen saturations, blood pressure, adequacy of pulmonary ventilation, and response to care were monitored throughout the procedure. The Endoscope was introduced through the mouth, and advanced to the third part of duodenum. The upper GI endoscopy was accomplished without difficulty. The patient tolerated the procedure well. Findings: The esophagus was normal. The stomach was normal. The examined duodenum was normal. Impression: - Normal esophagus. - Normal stomach. - Normal examined duodenum. - No specimens collected. Recommendation: - Observe patient's clinical course. - Follow an antireflux regimen. Procedure Code(s): --- Professional --- 52855, Esophagogastroduodenoscopy, flexible, transoral; diagnostic, including collection of specimen(s) by brushing or washing, when performed (separate procedure) Diagnosis Code(s): --- Professional --- R11.0, Nausea R12, Heartburn CPT copyright 2019 [employer]. All rights reserved. The codes documented in this report are preliminary and upon heel blacker review may be revised to meet current compliance requirements. Rubin David MD Rubin David MD 10/19/2020 12:53:05 PM Electronically signed by Rubin David MD Number of Addenda: 0 Note Initiated On: 10/19/2020 12:40 PM Estimated Blood Loss: Estimated blood loss: none.
--- NOTE | 2020-10-19 13:08 | ROOR ---
Patient Name: Micaela Streeter Procedure Date: 10/19/2020 12:41 PM Date of : 1990 Age: 30 Room: [facility] Gender: Female Note Status: Finalized Procedure: Colonoscopy Indications: Suspected irritable bowel syndrome, Change in bowel habits Providers: Rubin David MD Referring MD: Luzma ALFORD Requesting Provider: Medicines: Monitored Anesthesia Care Complications: No immediate complications. Procedure: Pre-Anesthesia Assessment: - The heart rate, respiratory rate, oxygen saturations, blood pressure, adequacy of pulmonary ventilation, and response to care were monitored throughout the procedure. The Colonoscope was introduced through the anus and advanced to 10 cm into the ileum. The colonoscopy was performed without difficulty. The patient tolerated the procedure well. The quality of the bowel preparation was good. Findings: The perianal and digital rectal examinations were normal. A few (three) small/medium-mouthed diverticula were found in the ascending colon. The entire examined colon appeared normal on direct and retroflexion views. The terminal ileum appeared normal. Impression: - A few small diverticula in the ascending colon. - The entire examined colon is otherwise normal on direct and retroflexion views. - The examined portion of the ileum was normal. - No specimens collected. - (Irritable Bowel Syndrome/IBS suspected.) Recommendation: - Use fiber, for example Citrucel, Fibercon, Konsyl or Metamucil. - Use Bentyl (dicyclomine) 10 - 20 mg PO Q 4-6 hrs PRN 30 min AC. Procedure Code(s): --- Professional --- 89110, Colonoscopy, flexible; diagnostic, including collection of specimen(s) by brushing or washing, when performed (separate procedure) Diagnosis Code(s): --- Professional --- K57.30, Diverticulosis of large intestine without perforation or abscess without bleeding R19.4, Change in bowel habit CPT copyright 2019 [employer]. All rights reserved. The codes documented in this report are preliminary and upon relief cook review may be revised to meet current compliance requirements. Rubin David MD Rubin David MD 10/19/2020 1:07:46 PM Electronically signed by Rubin David MD Number of Addenda: 0 Note Initiated On: 10/19/2020 12:41 PM Estimated Blood Loss: Estimated blood loss: none.
[2020-10-19 13:34] VITALS: BP 119/76
== END 2020-10-19 13:35 | disposition home or self-care (01) ==
LOC: M OPP 11:52
PROVIDERS: ATTEND Internal Medicine Gastroenterology
DX: K57.30 Diverticulosis of large intestine without perforation or abscess without bleeding (principal); R19.4 Change in bowel habit; R11.0 Nausea; R12 Heartburn; Z79.84 Long term (current) use of oral hypoglycemic drugs; Z79.899 Other long term (current) drug therapy; Z88.8 Allergy status to other drugs, medicaments and biological substances
CPT/HCPCS: 43235; 45378; J3010

== ENCOUNTER → 2020-11-18 | Outpatient (CLI) | payer OTHER ==
[~2020-11-18] MED LIST changes: -NS 1,000 ML IV ONE
[2020-11-18 12:39] LABS: BLOOD UREA NITROGEN 12 MG/DL (7-18); CARBON DIOXIDE LEVEL 28 MEQ/L (21-32); CHLORIDE LEVEL 109 MEQ/L (98-107); CREATININE FOR GFR 0.82 MG/DL (0.55-1.30); FREE T4 0.91 NG/DL (0.76-1.46); GLOMERULAR FILTRATION RATE > 60.0 (>60); GLUCOSE, FASTING 106 MG/DL (70-100); POTASSIUM SERUM 4.2 MEQ/L (3.5-5.1); SODIUM LEVEL 141 MEQ/L (136-145)
== END ==
LOC: M WUC 09:15
PROVIDERS: ATTEND Nurse Practitioner Family
DX: E03.9 Hypothyroidism, unspecified (principal); R73.01 Impaired fasting glucose

== ENCOUNTER → 2021-02-11 | Outpatient (CLI) | payer OTHER ==
[2021-02-11 13:21] LABS: BASO # 0.1 10^3/uL (0.0-0.2); BASO % 0.8 % (0.0-1.0); EOS # 0.2 10^3/uL (0.0-0.5); HEMATOCRIT 42.5 % (36.0-47.0); HEMOGLOBIN 14.2 g/dl (12.0-15.5); LYMPH # 2.9 10^3/uL (1.5-5.0); LYMPH % 31.7 % (24.0-44.0); MEAN CORPUSCULAR HEMOGLOBIN 30.1 pg (27.0-33.0); MEAN CORPUSCULAR HGB CONC 33.4 g/dl (32.0-36.5); MONO # 0.7 10^3/uL (0.0-0.8); MONO % 7.2 % (2.0-8.0); NEUTROPHILS # 5.3 10^3/uL (1.5-8.5); PLATELET COUNT, AUTOMATED 320 10^3/uL (150-450); RED BLOOD COUNT 4.72 10^6/uL (4.00-5.40); WHITE BLOOD COUNT 9.1 10^3/uL (4.0-10.0)
[2021-02-11 13:53] LABS: BLOOD UREA NITROGEN 14 MG/DL (7-18); CALCIUM LEVEL 9.7 MG/DL (8.5-10.1); CARBON DIOXIDE LEVEL 28 MEQ/L (21-32); CHLORIDE LEVEL 106 MEQ/L (98-107); CREATININE FOR GFR 0.87 MG/DL (0.55-1.30); FERRITIN 64 NG/ML (8-252); FREE T4 0.96 NG/DL (0.76-1.46); GLOMERULAR FILTRATION RATE > 60.0 (>60); GLUCOSE, FASTING 100 MG/DL (70-100); POTASSIUM SERUM 4.9 MEQ/L (3.5-5.1); SODIUM LEVEL 138 MEQ/L (136-145)
[2021-02-11 13:58] LABS: TOTAL 25(OH) VITAMIN D 42.9 NG/ML (30.0-100.0)
[2021-02-11 14:22] LABS: HEMOGLOBIN A1c 5.5 %
== END ==
LOC: M LAB 12:39
PROVIDERS: ATTEND Nurse Practitioner Family
DX: E03.9 Hypothyroidism, unspecified (principal); R53.82 Chronic fatigue, unspecified

== ENCOUNTER → 2021-05-24 | Outpatient (REF) | payer OTHER ==
[~2021-05-24] MED LIST changes: +BUSP1TAB; +CEPH500C PO; -CITA40TA4; +CITA40TA7; +LORA-243 PO
== END ==
LOC: M LAB REF 16:32
PROVIDERS: ATTEND Physician Assistant Medical
DX: R30.0 Dysuria (principal)

== ENCOUNTER → 2021-09-13 | Outpatient (CLI) | payer OTHER ==
[2021-09-13 18:08] LABS: FREE T4 1.07 NG/DL (0.76-1.46); THYROID STIMULATING HORMONE 1.44 uIU/ML (0.358-3.740)
== END ==
LOC: M WUC 11:35
PROVIDERS: ATTEND Nurse Practitioner Family
DX: E03.9 Hypothyroidism, unspecified (principal)

== ENCOUNTER 2022-11-17 15:36 | Emergency (ER) | payer OTHER ==
[~2022-11-17] VITALS: Ht 157.5 cm; Wt 114.1 kg
[2022-11-17 15:37] VITALS: TEMP 99.1
[2022-11-17] MEDS ORDERED: LEVO88TA3 (15:46)
[2022-11-17] MEDS ORDERED: LEXA1TAB2 (15:46)
[2022-11-17 17:13] LABS: BASO # 0.1 10^3/uL (0.0-0.2); BASO % 0.5 % (0.0-1.0); EOS # 0.2 10^3/uL (0.0-0.5); EOS % 1.3 % (0.0-3.0); HEMATOCRIT 42.1 % (36.0-47.0); HEMOGLOBIN 13.8 g/dl (12.0-15.5); LYMPH # 2.7 10^3/uL (1.5-5.0); LYMPH % 22.8 % (24.0-44.0); MEAN CORPUSCULAR HEMOGLOBIN 30.1 pg (27.0-33.0); MEAN CORPUSCULAR HGB CONC 32.8 g/dl (32.0-36.5); MEAN CORPUSCULAR VOLUME 91.7 fl (80.0-96.0); MONO # 0.6 10^3/uL (0.0-0.8); MONO % 4.8 % (2.0-8.0); NEUTROPHILS # 8.4 10^3/uL (1.5-8.5); NEUTROPHILS % 70.2 % (36.0-66.0); PLATELET COUNT, AUTOMATED 291 10^3/uL (150-450); RED BLOOD COUNT 4.59 10^6/uL (4.00-5.40)
[2022-11-17 17:32] LABS: LIPASE 45 U/L (12-53)
[2022-11-17 17:34] LABS: HCG, SERUM QUALITATIVE NEGATIVE (NEGATIVE)
[2022-11-17 17:35] LABS: ALBUMIN 3.9 G/DL (3.2-5.2); ALKALINE PHOSPHATASE 91 U/L (46-116); ALT/SGPT 116 U/L (7.0-40); AST/SGOT 43 U/L (<34); BILIRUBIN,DIRECT 0.1 MG/DL (<0.4); BILIRUBIN,TOTAL 0.4 MG/DL (0.3-1.2); BLOOD UREA NITROGEN 12 MG/DL (9-23); CALCIUM LEVEL 9.3 MG/DL (8.5-10.1); CARBON DIOXIDE LEVEL 27 MMOL/L (20-31); CHLORIDE LEVEL 105 MMOL/L (98-107); CREATININE FOR GFR 0.83 MG/DL (0.55-1.30); GLOMERULAR FILTRATION RATE > 60.0 (>60); GLUCOSE, FASTING 102 MG/DL (60-100); POTASSIUM SERUM 4.6 MMOL/L (3.5-5.1); SODIUM LEVEL 138 MMOL/L (136-145); TOTAL PROTEIN 7.3 G/DL (5.7-8.2)
[2022-11-17 19:04] LABS: GC DNA AMPLIFICATION NEGATIVE (NEGATIVE)
[2022-11-17] MEDS ORDERED: PERCOCET 5MG/325MG TAB PO ONE (19:55)
[2022-11-17] MEDS ORDERED: ISOVUE-370 76% 100ML VIAL As Ordered ONE (20:37)
[2022-11-17] MEDS ORDERED: DICY-61 PO (22:09)
[2022-11-17] MEDS ORDERED: DICYCLOMINE 10 MG CAP PO ONE (22:15)
[2022-11-17 22:27] VITALS: BP 136/75; O2SAT 97
== END 2022-11-17 22:28 | disposition home or self-care (01) ==
LOC: M ED 15:36
DX: R10.2 Pelvic and perineal pain (principal); R19.7 Diarrhea, unspecified; F41.9 Anxiety disorder, unspecified; E03.9 Hypothyroidism, unspecified; F10.10 Alcohol abuse, uncomplicated; Z87.42 Personal history of other diseases of the female genital tract; Z79.890 Hormone replacement therapy; Z79.899 Other long term (current) drug therapy
CPT/HCPCS: 36415; 74177; 76856; 80048; 80076; 81001; 83690; 84703; 85025; 87086; 87810; 87850; 93976; 99284; Q9967

== ENCOUNTER → 2023-03-31 | Outpatient (CLI) | payer OTHER ==
[~2023-03-31] MED LIST changes: +DICY-61 PO; +LEVO88TA3; +LEXA1TAB2
== END ==
LOC: M WUC 08:41
PROVIDERS: ATTEND Nurse Practitioner Family
DX: M25.531 Pain in right wrist (principal)

== ENCOUNTER → 2023-05-30 | Outpatient (REF) | payer OTHER | LOC: M LAB REF 09:41 | PROVIDERS: ATTEND Physician Assistant | DX: R30.0 Dysuria (principal) ==

== ENCOUNTER → 2023-08-01 | Outpatient (REF) | payer OTHER ==
[2023-08-02 12:11] LABS: RSV AMPLIFICATION NEGATIVE (NEGATIVE)
== END ==
LOC: M LAB REF 10:27
PROVIDERS: ATTEND Physician Assistant
DX: J06.9 Acute upper respiratory infection, unspecified (principal)

== ENCOUNTER → 2023-10-03 | Outpatient (CLI) | payer OTHER ==
[~2023-10-03] MED LIST changes: +ONDA-282 PO; -ONDA4TAB6 PO
== END ==
LOC: M SOG 07:58
PROVIDERS: ATTEND Physician Assistant
DX: M79.641 Pain in right hand (principal); Z53.9 Procedure and treatment not carried out, unspecified reason

== ENCOUNTER → 2023-12-27 | Outpatient (CLI) | payer OTHER ==
[~2023-12-27] MED LIST changes: -BUSP1TAB; +BUSP1TAB PO; -LEVO88TA3; +LEVO88TA3 PO; -LEXA1TAB2; +LEXA1TAB2 PO; +PHEN-239 PO; +VENL37.598 PO
== END ==
LOC: M RAD 16:46
PROVIDERS: ATTEND Student in an Organized Health Care Education/Training Program
DX: M25.561 Pain in right knee (principal)

== ENCOUNTER → 2023-12-29 | Outpatient (CLI) | payer OTHER | LOC: M PLARAD 08:42 | PROVIDERS: ATTEND Student in an Organized Health Care Education/Training Program | DX: M25.561 Pain in right knee (principal); M25.461 Effusion, right knee; S83.203A Other tear of unspecified meniscus, current injury, right knee, initial encounter; X58.XXXA Exposure to other specified factors, initial encounter; Y92.9 Unspecified place or not applicable ==

== ENCOUNTER 2024-01-05 09:53 | Day surgery (SDC) | payer OTHER ==
[~2024-01-05] VITALS: Ht 157.5 cm; Wt 113.4 kg
[~2024-01-05 09:53] MED LIST changes: +MIDAZOLAM INJ 2MG/2ML VIAL As Ordered ONE; +fentaNYL 100 MCG/2 ML INJECTION As Ordered ONE
[2024-01-05] MEDS ORDERED: ACETAMINOPHEN 1000MG 100ML IV BAG As Ordered ONE (09:55)
[2024-01-05] MEDS ORDERED: LIDOCAINE 2% 100MG/5ML SDV (FOR ANES.) As Ordered ONE (09:55)
[2024-01-05] MEDS ORDERED: propofoL 200 MG/20 ML VIAL As Ordered ONE (09:55)
[2024-01-05] MEDS ORDERED: LR 1,000 ML IV SCH ×2 (10:30→11:15)
[2024-01-05] MEDS ORDERED: KETOROLAC 60MG 2ML VIAL As Ordered ONE (10:47)
[2024-01-05] MEDS ORDERED: ONDANSETRON 4MG 2ML VIAL As Ordered ONE (10:47)
[2024-01-05] MEDS ORDERED: ONDANSETRON 4MG 2ML VIAL IV PRN (11:15)
[2024-01-05] MEDS ORDERED: fentaNYL 100 MCG/2 ML INJECTION IV PRN (11:15)
[2024-01-05] MEDS ORDERED: HYDROMORPHONE HCL 0.5 MG/ 0.5 ML SYRINGE IV PRN (11:15)
[2024-01-05] MEDS ORDERED: oxyCODONE 5MG TAB PO PRN (11:15)
[2024-01-05 12:15] VITALS: BP 126/79; TEMP 97.3; O2SAT 98
== END 2024-01-05 12:18 | disposition home or self-care (01) ==
LOC: M SDC 09:53
PROVIDERS: ATTEND Orthopaedic Surgery Hand Surgery
DX: G56.01 Carpal tunnel syndrome, right upper limb (principal); E03.9 Hypothyroidism, unspecified; F41.9 Anxiety disorder, unspecified; F32.A Depression, unspecified; Z79.899 Other long term (current) drug therapy; Z88.8 Allergy status to other drugs, medicaments and biological substances; G43.909 Migraine, unspecified, not intractable, without status migrainosus
CPT/HCPCS: 29848; 81025; J0131; J0665; J1100; J1885; J2250; J2405; J3010

== ENCOUNTER → 2024-06-25 | Outpatient (CLI) | payer OTHER ==
[~2024-06-25] MED LIST changes: -MIDAZOLAM INJ 2MG/2ML VIAL As Ordered ONE; -fentaNYL 100 MCG/2 ML INJECTION As Ordered ONE
[2024-06-25 20:02] LABS: HEMOGLOBIN A1c 5.5 % (4.0-6.0)
== END ==
LOC: M WUC 15:20
PROVIDERS: ATTEND Registered Nurse
DX: R73.03 Prediabetes (principal)